=== PATIENT | female | born 1995 | race Caucasian/White ===

== ENCOUNTER 2019-10-21 21:20 | Emergency (ER) | payer OTHER, MEDICAID ==
[~2019-10-21] VITALS: Ht 162 cm; Wt 61.2 kg
[2019-10-21 21:42] LABS: BILIRUBIN,URINE NEGATIVE (NEGATIVE); CLARITY,URINE CLEAR; COLOR,URINE YELLOW; GLUCOSE, URINE (UA) NEGATIVE (NEGATIVE); KETONES,URINE NEGATIVE (NEGATIVE); LEUKOCYTE ESTERASE ,URINE NEGATIVE (NEGATIVE); NITRITE,URINE NEGATIVE (NEGATIVE); PROTEIN,URINE NEGATIVE (NEGATIVE)
[2019-10-21 21:56] LABS: BACTERIA,URINE TRACE /HPF; RBC,URINE RARE /HPF; SQUAMOUS EPITHELIAL CELL,UR 0-2 /HPF
[2019-10-21] MEDS ORDERED: KETOROLAC 30 MG/ML VIAL IVP STA (22:01)
[2019-10-21] MEDS ORDERED: LACTATED RINGERS 1,000 ML IV ONE (22:01)
--- NOTE | 2019-10-21 22:10 | ED Abdominal Pain ---
General Chief Complaint: Abdominal/GI Problems Stated Complaint: ABD PAIN,BACK PAIN,NAUSEA,HEADACHE Nursing Triage Note: PT PRESENTS TO ED WITH COMPLAINTS OF LLQ PAIN AND DELGADO X 3 DAYS. PT ALSO REPORTS NAUSEA AND BACK PAIN STARTED TODAY. Sepsis Screen: No Definite Risk Source of Information: Patient History of Present Illness Date Seen by Provider: Oct 21, 2019 Time Seen by Provider: 21:25 Initial Comments PT ARRIVES VIA POV FROM HOME STATES SHE HAS HAD LLQ PAIN FOR THE LAST 3 NIGHTS PAIN RADIATES TO LEFT FLANK--BEGAN TODAY WORSE WITH SITTING, LAYING DOWN, WALKING OR MOVING NOTHING IMPROVES PAIN C/O NAUSEA, NO VOMITING--BEGAN TODAY HAD NORMAL BM 1 HOUR AGO ALSO C/O HEADACHE TODAY NO FEVER NO URINARY SYMPTOMS, OTHER URINATING MORE THAN NORMAL STATES SHE HAS BEEN EATING AND DRINKING WELL, NO RELIEF WITH EXTRA STRENGTH TYLENOL X 1 LMP--HAS HAD MIRENA IUD IN PLACE SINCE APRIL--SPOTS OFF AND ON ALL THE TIME. LAST SPOTTED 2 DAYS AGO. NO RECENT ILLNESS, NO SICK CONTACTS OR KNOWN EXPOSURE TO COVID-19 PCP: IN [place], [place]--JUST MOVED HERE IN JUNE, AMID PANDEMIC STAY AT HOME ORDERS Allergies and Home Medications Allergies Coded Allergies: iodine (Verified Allergy, Intermediate, HIVES, 10/21/19) metoclopramide (Verified Allergy, Intermediate, 10/21/19) prochlorperazine (Verified Allergy, Intermediate, DYSTONIC, 10/21/19) promethazine (Verified Allergy, Intermediate, 10/21/19) Home Medications Cyclobenzaprine HCl 10 Mg Tablet, 10 MG PO Q8H PRN for SPASMS Prescribed by: MELINDA ISAAC on 10/21/192317 Naproxen 500 Mg Tablet.dr, 500 MG PO BID Prescribed by: MELINDA ISAAC on 10/21/192317 Patient Home Medication List Home Medication List Reviewed: Yes Review of Systems Review of Systems Constitutional: no symptoms reported; No chills, No diaphoresis, No fever EENTM: No Symptoms Reported Respiratory: No Symptoms Reported Cardiovascular: No Symptoms Reported Gastrointestinal: See HPI, Abdominal Pain; Denies Diarrhea, Denies Nausea, Denies Vomiting Genitourinary: See HPI; Denies Burning; Flank Pain, Other (INCREASED OUTPUT) Musculoskeletal: see HPI, back pain Skin: no symptoms reported Psychiatric/Neurological: No Symptoms Reported Endocrine: No Symptoms Reported Hematologic/Lymphatic: No Symptoms Reported Past Rwddlfi-[id number]-[id number] Hx Past Med/Social Hx: Reviewed and Corrections made Patient Social History Alcohol Use: Denies Use Recreational Drug Use: No Smoking Status: Never a Smoker Recent Foreign Travel: No Contact w/Someone Who Travel: No Recent Infectious Disease Expo: No Recent Hopitalizations: No Physical Abuse: No Sexual Abuse: No Mistreated: No Fear: No Past Medical History Surgeries: No Respiratory: No Cardiac: No Neurological: No Reproductive Disorders: No 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 oz. kg; 23.00 BMI Method: General Appearance: WD/WN, no apparent distress, other (WALKS UPRIGHT AND MOVES QUICKLY WITHOUT DIFFICULTY, LAYING ON LEFT SIDE. CONSTANTLY PLAYING/TEXTING ON PHONE. DOES NOT APPEAR TO BE IN ANY DISCOMFORT OR DISTRESSS. ) Respiratory: normal breath sounds, no respiratory distress, no accessory muscle use Cardiovascular: regular rate, rhythm, no murmur Gastrointestinal: normal bowel sounds, soft, no organomegaly, no pulsatile mass, tenderness (LLQ AND LEFT FLANK WITH MILD TENDERNESS) Extremities: normal inspection Back: CVA tenderness (L) Neurologic/Psychiatric: manager education II-XII nml as tested, no motor/sensory deficits, alert, normal mood/affect, oriented x 3 Skin: normal color, warm/dry; No rash Progress/Results/Core Measures Results/Orders Lab Results Laboratory Tests Test 10/21/19 21:35 10/21/19 22:02 Range/Units Urine Color YELLOW Urine Clarity CLEAR Urine pH 7.0 5-9 Urine Specific [place] 1.015 L 1.016-1.022 Urine Protein NEGATIVE NEGATIVE Urine Glucose (UA) NEGATIVE NEGATIVE Urine Ketones NEGATIVE NEGATIVE Urine Nitrite NEGATIVE NEGATIVE Urine Bilirubin NEGATIVE NEGATIVE Urine Urobilinogen 0.2 < = 1.0 MG/DL Urine Leukocyte Esterase NEGATIVE NEGATIVE Urine RBC (Auto) NEGATIVE NEGATIVE Urine RBC RARE /HPF Urine WBC NONE /HPF Urine Squamous Epithelial Cells 0-2 /HPF Urine Crystals NONE /LPF Urine Bacteria TRACE /HPF Urine Casts NONE /LPF Urine Mucus SMALL H /LPF Urine Culture Indicated NO White Blood Count 7.5 4.3-11.0 10^3/uL Red Blood Count 4.44 4.35-5.85 10^6/uL Hemoglobin 13.3 11.5-16.0 G/DL Hematocrit 40 35-52 % Mean Corpuscular Volume 89 80-99 FL Mean Corpuscular Hemoglobin 30 25-34 PG Mean Corpuscular Hemoglobin Concent 34 32-36 G/DL Red Cell Distribution Width 12.5 10.0-14.5 % Platelet Count 225 130-400 10^3/uL Mean Platelet Volume 9.7 7.4-10.4 FL Neutrophils (%) (Auto) 53 42-75 % Lymphocytes (%) (Auto) 34 12-44 % Monocytes (%) (Auto) 9 0-12 % Eosinophils (%) (Auto) 3 0-10 % Basophils (%) (Auto) 0 0-10 % Neutrophils # (Auto) 4.0 1.8-7.8 X 10^3 Lymphocytes # (Auto) 2.6 1.0-4.0 X 10^3 Monocytes # (Auto) 0.7 0.0-1.0 X 10^3 Eosinophils # (Auto) 0.3 0.0-0.3 10^3/uL Basophils # (Auto) 0.0 0.0-0.1 10^3/uL Sodium Level 139 135-145 MMOL/L Potassium Level 3.9 3.6-5.0 MMOL/L Chloride Level 107 98-107 MMOL/L Carbon Dioxide Level 22 21-32 MMOL/L Anion Gap 10 5-14 MMOL/L Blood Urea Nitrogen 15 7-18 MG/DL Creatinine 0.73 0.60-1.30 MG/DL Estimat Glomerular Filtration Rate > 60 BUN/Creatinine Ratio 21 Glucose Level 81 70-105 MG/DL Calcium Level 8.6 8.5-10.1 MG/DL Corrected Calcium 8.6 8.5-10.1 MG/DL Total Bilirubin 0.5 0.1-1.0 MG/DL Aspartate Amino Transf (AST/SGOT) 19 5-34 U/L Alanine Aminotransferase (ALT/SGPT) 16 0-55 U/L Alkaline Phosphatase 74 40-136 U/L Total Protein 6.5 6.4-8.2 GM/DL Albumin 4.0 3.2-4.5 GM/DL Amylase Level 68 25-125 U/L Lipase 40 8-78 U/L My Orders Orders - MELINDA ISAAC DO Urine Bedside (10/21/19 21:25) Ua Culture If Indicated (10/21/19 21:25) Ed Iv/Invasive Line Start (10/21/19 21:57) Amylase (10/21/19 21:57) Cbc With Automated Diff (10/21/19 21:57) Comprehensive Metabolic Panel (10/21/19 21:57) Lipase (10/21/19 21:57) Ed Iv/Invasive Line Start (10/21/19 21:57) Ct Abd/Pelvis Wo(Kidney Stone) (10/21/19 22:01) Abdomen, Flat & Upright/Decub (10/21/19 22:01) Ed Iv/Invasive Line Start (10/21/19 22:01) Lactated Ringers (Lr 1000 Ml Iv Solution (10/21/19 22:01) Ketorolac Injection (Toradol Injection) (10/21/19 22:01) Rx-Cyclobenzaprine Tablet (Rx-Flexeril T (10/21/19 23:18) Rx-Naproxen (Rx-Naprosyn) (10/21/19 23:18) Medications Given in ED Current Medications Medications Dose Ordered Sig/Anne-Marie Route Start Time Stop Time Status Last Admin Dose Admin Lactated Ringer's 1,000 ml @ 0 mls/hr Q0M ONCE IV 10/21/19 22:01 10/21/19 22:03 DC 10/21/19 22:34 0 MLS/HR Vital Signs/I&O 10/21/19 10/21/19 21:30 23:44 Temp 37.1 Pulse 80 69 Resp 16 20 B/P (MAP) 115/71 (86) 120/78 Pulse Ox 99 100 Blood Pressure Mean: 86 Progress Progress Note : Progress Note GIVEN TORADOL WITH RELIEF OF PAIN Diagnostic Imaging Comments ABDOMEN XRAYS--LARGE AMOUNT OF STOOL IN COLON, NO ACUTE PROCESS, PENDING RADIOLOGIST REVIEW CT ABDOMEN/PELVIS--NO ACUTE PROCESS, BILATERAL INTRARENAL NON-OBSTRUCTING STONES, MODERATE AMOUNT OF STOOL IN COLON, NO ACUTE PROCESS, PER [facility] VIA FAX AT [id number] Reviewed: Reviewed by Me Departure Impression Primary Impression: LLQ AND LEFT FLANK PAIN Disposition: HOME, SELF-CARE Condition: Improved Departure-Patient Inst. Referrals: NO,LOCAL PHYSICIAN (PCP/Family) Primary Care Physician Patient Instructions: Flank Pain (DC), Severe Abdominal Pain, Adult (DC) Add. Discharge Instructions: LOTS OF CLEAR LIQUIDS FOLLOW UP WITH YOUR DR IN 1-2 DAYS IF NO BETTER, RETURN TO ER IF WORSE All discharge instructions reviewed with patient and/or family. Voiced understanding. Scripts Naproxen (Naproxen) 500 Mg Tablet.dr 500 MG PO BID, #20 TAB Prov: MELINDA ISAAC DO 10/21/19 Cyclobenzaprine HCl (Cyclobenzaprine HCl) 10 Mg Tablet 10 MG PO Q8H PRN for SPASMS, #15 TAB 0 Refills Prov: MELINDA ISAAC DO 10/21/19 MELINDA ISAAC DO Oct 21, 2019 22:10
[2019-10-21 22:16] LABS: BASOPHILS % (AUTO) 0 % (0-10); EOSINOPHILS # (AUTO) 0.3 10^3/uL (0.0-0.3); EOSINOPHILS % (AUTO) 3 % (0-10); HEMATOCRIT 40 % (35-52); HEMOGLOBIN 13.3 G/DL (11.5-16.0); LYMPHOCYTES # (AUTO) 2.6 X 10^3 (1.0-4.0); LYMPHOCYTES % (AUTO) 34 % (12-44); MEAN CORPUSCULAR HEMOGLOBIN 30 PG (25-34); MEAN CORPUSCULAR HGB CONC 34 G/DL (32-36); MEAN CORPUSCULAR VOLUME 89 FL (80-99); MEAN PLATELET VOLUME 9.7 FL (7.4-10.4); MONOCYTES # (AUTO) 0.7 X 10^3 (0.0-1.0); MONOCYTES % (AUTO) 9 % (0-12); NEUTROPHILS % (AUTO) 53 % (42-75); PLATELET COUNT 225 10^3/uL (130-400); RED CELL DISTRIBUTION WIDTH 12.5 % (10.0-14.5); WHITE BLOOD COUNT 7.5 10^3/uL (4.3-11.0)
[2019-10-21 22:34] LABS: ALANINE AMINOTRANSFERASE 16 U/L (0-55); ALKALINE PHOSPHATASE 74 U/L (40-136); AMYLASE 68 U/L (25-125); BILIRUBIN,TOTAL 0.5 MG/DL (0.1-1.0); BUN/CREATININE RATIO 21; CALCIUM 8.6 MG/DL (8.5-10.1); CARBON DIOXIDE 22 MMOL/L (21-32); CHLORIDE 107 MMOL/L (98-107); CREATININE SERUM 0.73 MG/DL (0.60-1.30); GFR ESTIMATED > 60; GLUCOSE 81 MG/DL (70-105); LIPASE 40 U/L (8-78); POTASSIUM 3.9 MMOL/L (3.6-5.0); SODIUM 139 MMOL/L (135-145); TOTAL PROTEIN 6.5 GM/DL (6.4-8.2)
--- OUTSIDE RECORDS SUMMARY | 2019-10-21 22:52 | XMS REPORT ---
Author Author [facility] Organization [facility] Address Unknown Phone Unavailable Care Team Providers Care Supervisor Electron [employer] Name Role Phone Sondra Mckeon PCP Leticia Higgins PCP Dalila Parikh PCP Juju Potter PCP Delta Pate PCP Lovely Hanley PCP Manisha Blood PCP Manisha Blancas PCP Laxmi Perkins PCP Alondra Wei PCP Kat Henriquez PCP Kat Simon PCP Assessments SatAug 08 08:00:00 EDT 2019: see [facility] Concerns No Known Health Concerns Allergies No Known Allergy Information Encounters No Known Encounters Immunizations No Known Immunizations Lab Results No Known Laboratory Results Medical Equipment No Known Medical Equipment Medications Medication Directions Start Date End Date Lexapro 10MG TAB Take one (1) Tablet Each Morning SatDec 10 00:00:00 EDT 2014Dec 10 00:00:00 EDT 2014 Abilify 5MG TAB Take one (1) Tablet Twice a Day Oct 20 00:00:00 EDT 2014Oct 29 00:00:00 EDT 2014 Lexapro 10 MG TAB Take one (1) Tablet Each Morning SatFeb 03 00:00:00 EDT 2015Apr 03 00:00:00 EST 2015 Lamictal 100MG TAB Take one (1) Tablet At Bedtime SatDec 10 00:00:00 EDT 2014Dec 10 00:00:00 EDT 2014 LaMICtal 150MG TAB Take one (1) Tablet At Bedtime SatNov 25 00:00:00 EDT 2014Dec 10 00:00:00 EDT 2014 RisperDAL 0.25MG TAB Take one (1) Tablet At Bedtim e SatDec 10 00:00:00 EDT 2014Dec 10 00:00:00 EDT 2014 RisperDAL 0.25MG TAB Take one (1) Tablet At Bedtim e SatOct 29 00:00:00 EDT 2014Nov 25 00:00:00 EDT 2014 LaMICtal 100MG TAB Take one (1) Tablet At Bedtime SatOct 20 00:00:00 ED2014Nov 25 00:00:00 ED2014 LaMICtal 100MG TAB Take one (1) Tablet At Bedtime SatSep 21 00:00:00 EDT 2014Oct 20 00:00:00 EDT 2014 LaMICtal 25MG TAB 1 TAB PO QHS X 1 WEEK , TH EN 2 TAB PO QHS X 2 WEEKS AND ANDTHEN 3 TAB PO QHS SatAugust 24 00:00:00 EDT 2014Sep 21 00:00:00 EDT 2014 Wellbutrin XL 150 MG T24 Take one (1) tablet by mo uth every morning SatMar 19 00:00:00 EST 2017May 17 00:00:00 EST 2018 Amphetamine Salt Combo 10MG TAB Take one (1) Table t Each Morning SatNov 25 00:00:00 EDT 2014Apr 13 00:00:00 EST 2014 Adderall 10MG TAB Take one (1) Tablet Each Morning SatDec 10 00:00:00 EDT 2014Apr 13 00:00:00 EST 2015 Lexapro 10MG TAB Take one (1) Tablet At Bedtime Oct 29 00:00:00 EDT 2014Nov 25 00:00:00 EDT 2014 lamoTRIgine 200MG TER Take one (1) Tablet, E xtended Release At Bedtime SatMar 07 00:00:00 EST 2014Apr 13 00:00:00 EST 2 015 Lexapro 10MG TAB Take one (1) Tablet Each Morning SatDec 23 00:00:00 EDT 2014Apr 13 00:00:00 EST 2014 RisperDAL 0.25 MG TAB TAKE 1 TABLET BY MOUTH EVERY DAY AT BEDTIME SatMar 29 00:00:00 EST 2014Apr 13 00:00:00 EST 2014 Lexapro 10MG TAB Take one (1) Tablet At Bedtime Oct 20 00:00:00 EDT 2014Oct 29 00:00:00 EDT 2014 RisperDAL 1 MG TAB take 1/2 tab at bedtime f or 3 nights then increase to 1 full tab as tolerated SatMar 19 00:00:00 EST 2017May 17 00:00:00 EST 2018 RisperDAL 0.25MG TAB Take one (1) Tablet At Bedtim e SatDec 23 00:00:00 EDT 2014Feb 20 00:00:00 EDT 2014 lamoTRIgine 200MG TER Take one (1) Tablet, E xtended Release At Bedtime SatDec 23 00:00:00 EDT 2014Feb 20 00:00:00 EDT 015 LaMICtal 150MG TAB Take one (1) Tablet At Bedtime SatNov 08 00:00:00 EDT 2014Nov 25 00:00:00 EDT 2014 Lexapro 10MG TAB Take one and one half (1.5) Table ts At Bedtime SatAugust 24 00:00:00 EDT 2014Sep 22 00:00:00 EDT 2014 Lexapro 10MG TAB Take one (1) Tablet At Bedtime We Oct 20 00:00:00 EDT 2014Oct 20 00:00:00 EDT 2014 RisperDAL 0.25MG TAB Take one (1) Tablet At Bedtim e SatNov 25 00:00:00 EDT 2014Dec 10 00:00:00 EDT 2014 Lexapro 10MG TAB Take one (1) Tablet Each Morning SatNov 25 00:00:00 EDT 2014Dec 10 00:00:00 EDT 2014 Abilify 5MG TAB Take one (1) Tablet Twice a Day-DC MED [facility] 6-30-15 SatOct 20 00:00:00 EDT 2014Oct 20 00:00:00 EDT 2 015 Treatment Plan Interventions WAIVER SERVICE BUNDLE - Provid e the following services 1-3 times each week: + H2021 Wraparound Facilitation + S5110 Parent Support Individual + T2038 Independent Living CM will teach client how to co mplete her taxes.ATT CRISIS SERVICE BUNDLE + H2011 Crisis Intervention Attd Care + [id number] Crisis Intervention BA level + [id number] Crisis Intervention QMHP ADULT CASE MANAGEMENT SERVICE BUNDLE - Provide the following services 1-3 times each week: + 14145 Case Conf w/Clt nn-Physician + 52623 Case Conf w/o clt + family w/MD + 87728 Case Conf no Clt, no MD, w/QMHP + [id number] CPST Adult + [id number] Strength Based Case Mgmt + T1017 TCM - Targeted Case Management CM and client will research co mmunity for affordable places to live.DISC CM and client will learn skill s for money management and credit, such as budgeting, spending journal. CM and client will complete [place] S assessment WAIVER SERVICE BUNDLE - Provid e the following services 1-3 times each week: + H2021 Wraparound Facilitation + S5110 Parent Support Individual VOCATIONAL SERVICES BUNDLE - P rovide the following services 1-3 times each week: + [id number] CPST Supported Employment + [id number] CPST Adult + H2017 Psychosocial Rehab Individual + T1017 TCM - Targeted Case Management CRISIS SERVICE BUNDLE + H2011 Crisis Intervention Attd Care + [id number] Crisis Intervention BA level + [id number] Crisis Intervention QMHP ADULT CASE MANAGEMENT SERVICE BUNDLE - Provide the following services 1-3 times each week: + 76095 Case Conf w/Clt nn-Physician + 86772 Case Conf w/o clt + family w/MD + 82087 Case Conf no Clt, no MD, w/QMHP + [id number] CPST Adult + [id number] Strength Based Case Mgmt + T1017 TCM - Targeted Case Management Client Reporting Associate and CM will continue to encourage client to complete homework and study, keep her motivated and interested in school so she will graduate. Client Reporting Associate will a ssist client in admission to [facility], complete any paperwork, assist with class schedule, introduce to ACCESS services and meet with client to manage stressors at school WAIVER SERVICE BUNDLE - Provid e the following services 1-3 times each week: + H2021 Wraparound Facilitation + S5110 Parent Support Individual CRISIS SERVICE BUNDLE + H2011 Crisis Intervention Attd Care + [id number] Crisis Intervention BA level + [id number] Crisis Intervention QMHP ADULT THERAPY SERVICE BUNDLE - Provide the following services 1-3 times each week: + 56656 Psychotherapy, 16-37 Minutes + 22205 Psychotherapy, 38-52 Minutes + 02392 Psychotherapy, 53+ Minutes + 37380 Psychotherapy for Crisis 31-74 Minutes + 07948 Each Add'l 30 Min Crisis Psychotherapy + 96021 Case Conf w/Clt NN-Physician + 88608 Case Conf w/o Clt + Fam w/MD + 15905 Case Conf w/o Clt w/MD + T1017 TCM - Targeted Case Management ADULT CASE MANAGEMENT SERVICE BUNDLE - Provide the following services 1-3 times each week: + 36546 Case Conf w/Clt nn-Physician + 66485 Case Conf w/o clt + family w/MD + 57721 Case Conf no Clt, no MD, w/QMHP + [id number] CPST Adult + [id number] Strength Based Case Mgmt + T1017 TCM - Targeted Case Management CM will assist client in inden tifying ways she can incorporate self care to manage her angerDISC Providers will assist client i n developing a MINI WRAP and safety plan to utilize if her anger escalates. Therapist will assist client i n identifying triggers and ways to manage those triggers safely. CM will teach client demarcus white to balance work, school, baby and family without having sense of overwhelm. CM will teach client skills to manage her anger such as deep breathing, mindfulness . Initial Psychiatric Evaluation , Ongoing medication monitoring and management, Case Conference with multidisciplinary members of the [facility] team as indicated, and/or Collaboration and coordination with outside medical providers as indicated by providing the following services: 45356 interactive complexity 05535 psychiatric diagnostic eval w/ meds 09838 30 min psychotherapy add-on 57756 45 [place] [address] 60 min psychotherapy add-on 26677 med injection 32666 New Patient E&M (level 1) 22300 New Patient E&M (level 2) 06908 New Patient E&M (level 3) 19776 New patient E&M (level 4) 98375 New Patient E&M (level 5) 89952 Established Patient E&M (level 1) 04358 Established Patient E&M (level 2) 79594 Established Patient E&M (level 3) 06029 Established Patient E&M (level 4) 17353 Established Patient E&M (level 5) 9935x prolonged service code 84235 case conference w/o clt & fam w/ [place] 28713 case conference w/o clt w/ MD H0038 Peer Support Sarina ADULT CASE MANAGEMENT SERVICE BUNDLE - Provide the following services: + 67899 Case Conf w/Clt nn-Physician + [id number] CPST Adult + [id number] Strength Based Case Mgmt + T1017 TCM - Targeted Case Management WAIVER SERVICE BUNDLE - Provid e the following services: + H2021 Wraparound Facilitation + S5150 Respite Care Individual + [id number] MH Attendant Care Waiver CRISIS SERVICE BUNDLE + H2011 Crisis Intervention Attd Care + [id number] Crisis Intervention BA level + [id number] Crisis Intervention QMHP Action steps: 1) Client will utilize grounding skills 2. Take baby to calm her down 3.sleep 4. talk with older sister 5. Get away from dad (trigger) 6. call after hours/crisis 7. go to hospital or call police if needed Providers will assist client i n completing steps to attend [facility]. CM will teach client skills t o control impulsive spending. CM will encourage client to c omplete homework and turn in assignments for her online classes. WAIVER SERVICE BUNDLE - Provid e the following services 1-3 times each week: + H2021 Wraparound Facilitation + S5110 Parent Support Individual + T2038 Independent Living CRISIS SERVICE BUNDLE + H2011 Crisis Intervention Attd Care + [id number] Crisis Intervention BA level + [id number] Crisis Intervention QMHP ADULT CASE MANAGEMENT SERVICE BUNDLE - Provide the following services 1-3 times each week: + 83199 Case Conf w/Clt nn-Physician + 32664 Case Conf w/o clt + family w/MD + 03456 Case Conf no Clt, no MD, w/QMHP + [id number] CPST Adult + [id number] Strength Based Case Mgmt + T1017 TCM - Targeted Case Management CM and client will learn skill s for money management and credit, such as budgeting, spending journal. CM and client will complete [place] S assessment WAIVER SERVICE BUNDLE - Provid e the following services 1-3 times each week: + H2021 Wraparound Facilitation + S5110 Parent Support Individual VOCATIONAL SERVICES BUNDLE - P rovide the following services 1-3 times each week: + [id number] CPST Supported Employment + [id number] CPST Adult + H2017 Psychosocial Rehab Individual + T1017 TCM - Targeted Case Management CRISIS SERVICE BUNDLE + H2011 Crisis Intervention Attd Care + [id number] Crisis Intervention BA level + [id number] Crisis Intervention QMHP ADULT CASE MANAGEMENT SERVICE BUNDLE - Provide the following services 1-3 times each week: + 43895 Case Conf w/Clt nn-Physician + 95217 Case Conf w/o clt + family w/MD + 31448 Case Conf no Clt, no MD, w/QMHP + [id number] CPST Adult + [id number] Strength Based Case Mgmt + T1017 TCM - Targeted Case Management Client Reporting Associate and CM will continue to encourage client to complete homework and study, keep her motivated and interested in school so she will graduate. Client Reporting Associate will a ssist client in admission to [facility], complete any paperwork, assist with class schedule, introduce to ACCESS services and meet with client to manage stressors at school WAIVER SERVICE BUNDLE - Provid e the following services 1-3 times each week: + H2021 Wraparound Facilitation + S5110 Parent Support Individual CRISIS SERVICE BUNDLE + H2011 Crisis Intervention Attd Care + [id number] Crisis Intervention BA level + [id number] Crisis Intervention QMHP ADULT THERAPY SERVICE BUNDLE - Provide the following services 1-3 times each week: + 75266 Psychotherapy, 16-37 Minutes + 78984 Psychotherapy, 38-52 Minutes + 88226 Psychotherapy, 53+ Minutes + 29261 Psychotherapy for Crisis 31-74 Minutes + 60235 Each Add'l 30 Min Crisis Psychotherapy + 31038 Case Conf w/Clt NN-Physician + 16753 Case Conf w/o Clt + Fam w/MD + 65304 Case Conf w/o Clt w/MD + T1017 TCM - Targeted Case Management ADULT CASE MANAGEMENT SERVICE BUNDLE - Provide the following services 1-3 times each week: + 88664 Case Conf w/Clt nn-Physician + 50945 Case Conf w/o clt + family w/MD + 88303 Case Conf no Clt, no MD, w/QMHP + [id number] CPST Adult + [id number] Strength Based Case Mgmt + T1017 TCM - Targeted Case Management Providers will assist client i n developing a MINI WRAP and safety plan to utilize if her anger escalates. Therapist will assist client i n identifying triggers and ways to manage those triggers safely. CM will teach client demarcus white to balance work, school, baby and family without having sense of overwhelm. CM will teach client skills to manage her anger such as deep breathing, mindfulness .ATT Initial Psychiatric Evaluation , Ongoing medication monitoring and management, Case Conference with multidisciplinary members of the [facility] team as indicated, and/or Collaboration and coordination with outside medical providers as indicated by providing the following services: 48103 interactive complexity 37513 psychiatric diagnostic eval w/ meds 24170 30 min psychotherapy add-on 83986 45 [place] [address] 60 min psychotherapy add-on 23616 med injection 86303 New Patient E&M (level 1) 17385 New Patient E&M (level 2) 84267 New Patient E&M (level 3) 42301 New patient E&M (level 4) 39634 New Patient E&M (level 5) 37071 Established Patient E&M (level 1) 32343 Established Patient E&M (level 2) 56208 Established Patient E&M (level 3) 13086 Established Patient E&M (level 4) 05355 Established Patient E&M (level 5) 9935x prolonged service code 39670 case conference w/o clt & [place]/ [place] [address] case conference w/o clt w/ MD H0038 Peer Support Sarina ADULT CASE MANAGEMENT SERVICE BUNDLE - Provide the following services: + 13054 Case Conf w/Clt nn-Physician + [id number] CPST Adult + [id number] Strength Based Case Mgmt + T1017 TCM - Targeted Case Management WAIVER SERVICE BUNDLE - Provid e the following services: + H2021 Wraparound Facilitation + S5150 Respite Care Individual + [id number] MH Attendant Care Waiver CRISIS SERVICE BUNDLE + H2011 Crisis Intervention Attd Care + [id number] Crisis Intervention BA level + [id number] Crisis Intervention QMHP Action steps: 1) Client will utilize grounding skills 2. Take baby to calm her down 3.sleep 4. talk with older sister 5. Get away from dad (trigger) 6. call after hours/crisis 7. go to hospital or call police if needed WAIVER SERVICE BUNDLE - Provid e the following services 1-3 times each week: + H2021 Wraparound Facilitation + S5110 Parent Support Individual + T2038 Independent Living CM will make referral to Vocat ional Team to gain assistance and knowledge from Client Reporting Associate. WAIVER SERVICE BUNDLE - Provid e the following services 1-3 times each week: + H2021 Wraparound Facilitation + S5110 Parent Support Individual + S5150 Respite Care Individual + S9485 Professional Resource Family Care + [id number] Attendant Care Waiver + T2038 Independent Living CM will teach client skills t o control impulsive spending. WAIVER SERVICE BUNDLE - Provid e the following services 1-3 times each week: + H2021 Wraparound Facilitation + S5110 Parent Support Individual + T2038 Independent Living CRISIS SERVICE BUNDLE + H2011 Crisis Intervention Attd Care + [id number] Crisis Intervention BA level + [id number] Crisis Intervention QMHP ADULT CASE MANAGEMENT SERVICE BUNDLE - Provide the following services 1-3 times each week: + 67930 Case Conf w/Clt nn-Physician + 27442 Case Conf w/o clt + family w/MD + 87461 Case Conf no Clt, no MD, w/QMHP + [id number] CPST Adult + [id number] Strength Based Case Mgmt + T1017 TCM - Targeted Case Management CM and client will learn skill s for money management and credit, such as budgeting, spending journal. CM and client will complete [place] S assessment Providers will assist client i n completing steps to attend [facility]. CM will encourage client to c omplete homework and turn in assignments for her online classes. VOCATIONAL SERVICES BUNDLE - P rovide the following services 1-3 times each week: + [id number] CPST Supported Employment + [id number] CPST Adult + H2017 Psychosocial Rehab Individual + T1017 TCM - Targeted Case Management CRISIS SERVICE BUNDLE + H2011 Crisis Intervention Attd Care + [id number] Crisis Intervention BA level + [id number] Crisis Intervention QMHP ADULT CASE MANAGEMENT SERVICE BUNDLE - Provide the following services 1-3 times each week: + 70104 Case Conf w/Clt nn-Physician + 22583 Case Conf w/o clt + family w/MD + 90355 Case Conf no Clt, no MD, w/QMHP + [id number] CPST Adult + [id number] Strength Based Case Mgmt + T1017 TCM - Targeted Case Management Client Reporting Associate and CM will continue to encourage client to complete homework and study, keep her motivated and interested in school so she will graduate. Client Reporting Associate will a ssist client in admission to [facility], complete any paperwork, assist with class schedule, introduce to ACCESS services and meet with client to manage stressors at school CRISIS SERVICE BUNDLE + H2011 Crisis Intervention Attd Care + [id number] Crisis Intervention BA level + [id number] Crisis Intervention QMHP ADULT THERAPY SERVICE BUNDLE - Provide the following services 1-3 times each week: + 62368 Psychotherapy, 16-37 Minutes + 50607 Psychotherapy, 38-52 Minutes + 28192 Psychotherapy, 53+ Minutes + 96133 Psychotherapy for Crisis 31-74 Minutes + 69932 Each Add'l 30 Min Crisis Psychotherapy + 27319 Case Conf w/Clt NN-Physician + 03249 Case Conf w/o Clt + Fam w/MD + 67279 Case Conf w/o Clt w/MD + T1017 TCM - Targeted Case Management ADULT CASE MANAGEMENT SERVICE BUNDLE - Provide the following services 1-3 times each week: + 88836 Case Conf w/Clt nn-Physician + 65913 Case Conf w/o clt + family w/MD + 21334 Case Conf no Clt, no MD, w/QMHP + [id number] CPST Adult + [id number] Strength Based Case Mgmt + T1017 TCM - Targeted Case Management Providers will teach client ST OPP skill, Anger Iceberg, Anger as a Secondary Emotion through handouts, phone apps and other resources available in the community. Providers will assist client i n identifying triggers and ways to manage those triggers safely. CM will teach client time zachary gement/structure to balance work, school, baby and family without having sense of overwhelm. CM will teach client skills to manage her anger such as deep breathing, mindfulness .ATT Initial Psychiatric Evaluation , Ongoing medication monitoring and management, Case Conference with multidisciplinary members of the [facility] team as indicated, and/or Collaboration and coordination with outside medical providers as indicated by providing the following services: 32833 interactive complexity 17175 psychiatric diagnostic eval w/ meds 07327 30 min psychotherapy add-on 76538 45 [place] [address] 60 min psychotherapy add-on 65617 med injection 06849 New Patient E&M (level 1) 92052 New Patient E&M (level 2) 39081 New Patient E&M (level 3) 26705 New patient E&M (level 4) 47334 New Patient E&M (level 5) 50946 Established Patient E&M (level 1) 24464 Established Patient E&M (level 2) 65543 Established Patient E&M (level 3) 27854 Established Patient E&M (level 4) 81508 Established Patient E&M (level 5) 9935x prolonged service code 09858 case conference w/o clt [place]/ [place] [address] case conference w/o clt w/ MD H0038 Peer Support Sarina ADULT CASE MANAGEMENT SERVICE BUNDLE - Provide the following services: + 97984 Case Conf w/Clt nn-Physician + [id number] CPST Adult + [id number] Strength Based Case Mgmt + T1017 TCM - Targeted Case Management WAIVER SERVICE BUNDLE - Provid e the following services: + H2021 Wraparound Facilitation + S5150 Respite Care Individual + [id number] MH Attendant Care Waiver CRISIS SERVICE BUNDLE + H2011 Crisis Intervention Attd Care + [id number] Crisis Intervention BA level + [id number] Crisis Intervention QMHP Action steps: 1) Client will utilize grounding skills 2. Take baby to calm her down 3.sleep 4. talk with older sister 5. Get away from dad (trigger) 6. call after hours/crisis 7. go to hospital or call police if needed Client will utilize learned sk ills such as deep breathing and mindfulness. CM will assist client in findi ng strategies to remember to take medications including phone reminders, bubble packaging. CM will teach client skills t o control impulsive spending.ATT WAIVER SERVICE BUNDLE - Provid e the following services 1-3 times each week: + H2021 Wraparound Facilitation + S5110 Parent Support Individual + T2038 Independent Living CRISIS SERVICE BUNDLE + H2011 Crisis Intervention Attd Care + [id number] Crisis Intervention BA level + [id number] Crisis Intervention QMHP ADULT CASE MANAGEMENT SERVICE BUNDLE - Provide the following services 1-3 times each week: + 16938 Case Conf w/Clt nn-Physician + 45098 Case Conf w/o clt + family w/MD + 59720 Case Conf no Clt, no MD, w/QMHP + [id number] CPST Adult + [id number] Strength Based Case Mgmt + T1017 TCM - Targeted Case Management CM and client will learn skill s for money management and credit, such as budgeting, spending journal. CM and client will complete [place] S assessment DISC WAIVER SERVICE BUNDLE - Provid e the following services 1-3 times each week: + H2021 Wraparound Facilitation + S5110 Parent Support Individual + T2038 Independent Living CM will make referral to Vocat ional Team to gain assistance and knowledge from Client Reporting Associate. Providers will assist client i n completing steps to attend [facility]. CM will encourage client to c omplete homework and turn in assignments for her online classes. VOCATIONAL SERVICES BUNDLE - P rovide the following services 1-3 times each week: + [id number] CPST Supported Employment + [id number] CPST Adult + H2017 Psychosocial Rehab Individual + T1017 TCM - Targeted Case Management CRISIS SERVICE BUNDLE + H2011 Crisis Intervention Attd Care + [id number] Crisis Intervention BA level + [id number] Crisis Intervention [facility] ADULT CASE MANAGEMENT SERVICE BUNDLE - Provide the following services 1-3 times each week: + 23390 Case Conf w/Clt nn-Physician + 02865 Case Conf w/o clt + family w/MD + 98412 Case Conf no Clt, no MD, w/QMHP + [id number] CPST Adult + [id number] Strength Based Case Mgmt + T1017 TCM - Targeted Case Management Client Reporting Associate and CM will continue to encourage client to complete homework and study, keep her motivated and interested in school so she will graduate. Client Reporting Associate will a ssist client in admission to [facility], complete any paperwork, assist with class schedule, introduce to ACCESS services and meet with client to manage stressors at school ATT WAIVER SERVICE BUNDLE - Provid e the following services 1-3 times each week: + H2021 Wraparound Facilitation + S5110 Parent Support Individual + S5150 Respite Care Individual + S9485 Professional Resource Family Care + [id number] MH Attendant Care Waiver + T2038 Independent Living CRISIS SERVICE BUNDLE + H2011 Crisis Intervention Attd Care + [id number] Crisis Intervention BA level + [id number] Crisis Intervention QM ADULT CASE MANAGEMENT SERVICE BUNDLE - Provide the following services 1-3 times each week: + 46523 Case Conf w/Clt nn-Physician + 61722 Case Conf w/o clt + family w/MD + 78771 Case Conf no Clt, no MD, w/QMHP + [id number] CPST Adult + [id number] Strength Based Case Mgmt + T1017 TCM - Targeted Case Management Providers will teach client ST OPP skill, Anger Iceberg, Anger as a Secondary Emotion through handouts, phone apps and other resources available in the community. Providers will assist client i n identifying triggers and ways to manage those triggers safely. CM will teach client time zachary gement/structure to balance work, school, baby and family without having sense of overwhelm. CM will teach client skills to manage her anger such as deep breathing, mindfulness .ATT Initial Psychiatric Evaluation , Ongoing medication monitoring and management, Case Conference with multidisciplinary members of the [facility] team as indicated, and/or Collaboration and coordination with outside medical providers as indicated by providing the following services: 89313 interactive complexity 57566 psychiatric diagnostic eval w/ meds 99446 30 min psychotherapy add-on 98830 45 [place] [address] 60 min psychotherapy add-on 36815 med injection 79414 New Patient E&M (level 1) 58909 New Patient E&M (level 2) 79582 New Patient E&M (level 3) 00545 New patient E&M (level 4) 59591 New Patient E&M (level 5) 34914 Established Patient E&M (level 1) 00019 Established Patient E&M (level 2) 55742 Established Patient E&M (level 3) 08354 Established Patient E&M (level 4) 40580 Established Patient E&M (level 5) 9935x prolonged service code 24249 case conference w/o clt & fam w/ 15598 case conference w/o clt w/ H0038 Peer Support Sarina ADULT CASE MANAGEMENT SERVICE BUNDLE - Provide the following services: + 22910 Case Conf w/Clt nn-Physician + [id number] CPST Adult + [id number] Strength Based Case Mgmt + T1017 TCM - Targeted Case Management WAIVER SERVICE BUNDLE - Provid e the following services: + H2021 Wraparound Facilitation + S5150 Respite Care Individual + [id number] MH Attendant Care Waiver CRISIS SERVICE BUNDLE + H2011 Crisis Intervention Attd Care + [id number] Crisis Intervention BA level + [id number] Crisis Intervention QMHP Action steps: 1) Client will utilize grounding skills 2. Take baby to calm her down 3.sleep 4. talk with older sister 5. Get away from dad (trigger) 6. call after hours/crisis 7. go to hospital or call police if needed WAIVER SERVICE BUNDLE - Provid e the following services 1-3 times each week: + H2021 Wraparound Facilitation + S5110 Parent Support Individual + T2038 Independent Living CRISIS SERVICE BUNDLE + H2011 Crisis Intervention Attd Care + [id number] Crisis Intervention BA level + [id number] Crisis Intervention QMHP ADULT CASE MANAGEMENT SERVICE BUNDLE - Provide the following services 1-3 times each week: + 67822 Case Conf w/Clt nn-Physician + 05923 Case Conf w/o clt + family w/MD + 98240 Case Conf no Clt, no MD, w/QMHP + [id number] CPST Adult + [id number] Strength Based Case Mgmt + T1017 TCM - Targeted Case Management CM and client will learn skill s for money management and credit, such as budgeting, spending journal. WAIVER SERVICE BUNDLE - Provid e the following services 1-3 times each week: + H2021 Wraparound Facilitation + S5110 Parent Support Individual + T2038 Independent Living CM will make referral to Vocat ional Team to gain assistance and knowledge from Client Reporting Associate. Providers will assist client i n completing steps to attend [facility]. CM will encourage client to c omplete homework and turn in assignments for her online classes. VOCATIONAL SERVICES BUNDLE - P rovide the following services 1-3 times each week: + [id number] CPST Supported Employment + [id number] CPST Adult + H2017 Psychosocial Rehab Individual + T1017 TCM - Targeted Case Management CRISIS SERVICE BUNDLE + H2011 Crisis Intervention Attd Care + [id number] Crisis Intervention BA level + [id number] Crisis Intervention QMHP ADULT CASE MANAGEMENT SERVICE BUNDLE - Provide the following services 1-3 times each week: + 79392 Case Conf w/Clt nn-Physician + 74257 Case Conf w/o clt + family w/MD + 65707 Case Conf no Clt, no MD, w/QMHP + [id number] CPST Adult + [id number] Strength Based Case Mgmt + T1017 TCM - Targeted Case Management Client Reporting Associate and CM will continue to encourage client to complete homework and study, keep her motivated and interested in school so she will graduate. Client will utilize learned sk ills such as deep breathing and mindfulness. CM will assist client in findi ng strategies to remember to take medications including phone reminders, bubble packaging. WAIVER SERVICE BUNDLE - Provid e the following services 1-3 times each week: + H2021 Wraparound Facilitation + S5110 Parent Support Individual + S5150 Respite Care Individual + S9485 Professional Resource Family Care + [id number] MH Attendant Care Waiver + T2038 Independent Living CRISIS SERVICE BUNDLE + H2011 Crisis Intervention Attd Care + [id number] Crisis Intervention BA level + [id number] Crisis Intervention QMHP ADULT CASE MANAGEMENT SERVICE BUNDLE - Provide the following services 1-3 times each week: + 89473 Case Conf w/Clt nn-Physician + 77680 Case Conf w/o clt + family w/MD + 01309 Case Conf no Clt, no MD, w/QMHP + [id number] CPST Adult + [id number] Strength Based Case Mgmt + T1017 TCM - Targeted Case Management Providers will teach client ST OPP skill, Anger Iceberg, Anger as a Secondary Emotion through handouts, phone apps and other resources available in the community. Providers will assist client i n identifying triggers and ways to manage those triggers safely. CM will teach client time zachary gement/structure to balance work, school, baby and family without having sense of overwhelm. CM will teach client skills to manage her anger such as deep breathing, mindfulness .ATT Initial Psychiatric Evaluation , Ongoing medication monitoring and management, Case Conference with multidisciplinary members of the [facility] team as indicated, and/or Collaboration and coordination with outside medical providers as indicated by providing the following services: 11058 interactive complexity 09942 psychiatric diagnostic eval w/ meds 80497 30 min psychotherapy add-on 73673 45 [place] [address] 60 min psychotherapy add-on 98294 med injection 16061 New Patient E&M (level 1) 08178 New Patient E&M (level 2) 31017 New Patient E&M (level 3) 98405 New patient E&M (level 4) 75758 New Patient E&M (level 5) 32542 Established Patient E&M (level 1) 76929 Established Patient E&M (level 2) 44245 Established Patient E&M (level 3) 52132 Established Patient E&M (level 4) 90234 Established Patient E&M (level 5) 9935x prolonged service code 19403 case conference w/o clt & fam w/ MD 03123 case conference w/o clt w/ MD H0038 Peer Support Sarina ADULT CASE MANAGEMENT SERVICE BUNDLE - Provide the following services: + 91277 Case Conf w/Clt nn-Physician + [id number] CPST Adult + [id number] Strength Based Case Mgmt + T1017 TCM - Targeted Case Management WAIVER SERVICE BUNDLE - Provid e the following services: + H2021 Wraparound Facilitation + S5150 Respite Care Individual + [id number] MH Attendant Care Waiver CRISIS SERVICE BUNDLE + H2011 Crisis Intervention Attd Care + [id number] Crisis Intervention BA level + [id number] Crisis Intervention QMHP Action steps: 1) Client will utilize grounding skills 2. Take baby to calm her down 3.sleep 4. talk with older sister 5. Get away from dad (trigger) 6. call after hours/crisis 7. go to hospital or call police if needed WAIVER SERVICE BUNDLE - Provid e the following services 1-3 times each week: + H2021 Wraparound Facilitation + S5110 Parent Support Individual + S5150 Respite Care Individual + S9485 Professional Resource Family Care + [id number] MH Attendant Care Waiver + T2038 Independent Living CRISIS SERVICE BUNDLE + H2011 Crisis Intervention Attd Care + [id number] Crisis Intervention BA level + [id number] Crisis Intervention QMHP ADULT CASE MANAGEMENT SERVICE BUNDLE - Provide the following services 1-3 times each week: + 87993 Psychological Testing + 15988 Case Conf w/Clt nn-Physician + 47080 Case Conf w/o clt + family w/MD + 65267 Case Conf no Clt, no MD, w/QMHP + [id number] CPST Adult + [id number] Strength Based Case Mgmt + T1017 TCM - Targeted Case Management CM and client will find ways t o be successful in taking medications consistently. CM will teach cliient abot charan fullness vs willingness. ClM and client will see psycha iatrist at [facility] for medicartion adjustment. Client will meet with case man ager weekly. WAIVER SERVICE BUNDLE - Provid e the following services 1-3 times each week: + H2021 Wraparound Facilitation + S5110 Parent Support Individual + T2038 Independent Living DISC CRISIS SERVICE BUNDLE + H2011 Crisis Intervention Attd Care + [id number] Crisis Intervention BA level + [id number] Crisis Intervention QMHP DISC ADULT CASE MANAGEMENT SERVICE BUNDLE - Provide the following services 1-3 times each week: + 51236 Case Conf w/Clt nn-Physician + 63388 Case Conf w/o clt + family w/MD + 70236 Case Conf no Clt, no MD, w/QMHP + [id number] CPST Adult + [id number] Strength Based Case Mgmt + T1017 TCM - Targeted Case Management DISC CM and client will learn skill s for money management and credit, such as budgeting, spending journal.DISC WAIVER SERVICE BUNDLE - Provid e the following services 1-3 times each week: + H2021 Wraparound Facilitation + S5110 Parent Support Individual + T2038 Independent Living CM will make referral to Vocat ional Team to gain assistance and knowledge from Client Reporting Associate.ATT Providers will assist client i n completing steps to attend [facility]. CM will encourage client to c omplete homework and turn in assignments for her online classes. VOCATIONAL SERVICES BUNDLE - P rovide the following services 1-3 times each week: + [id number] CPST Supported Employment + [id number] CPST Adult + H2017 Psychosocial Rehab Individual + T1017 TCM - Targeted Case Management CRISIS SERVICE BUNDLE + H2011 Crisis Intervention Attd Care + [id number] Crisis Intervention BA level + [id number] Crisis Intervention QMHP ADULT CASE MANAGEMENT SERVICE BUNDLE - Provide the following services 1-3 times each week: + 31965 Case Conf w/Clt nn-Physician + 48773 Case Conf w/o clt + family w/MD + 53992 Case Conf no Clt, no MD, w/QMHP + [id number] CPST Adult + [id number] Strength Based Case Mgmt + T1017 TCM - Targeted Case Management Client Reporting Associate and CM will continue to encourage client to complete homework and study, keep her motivated and interested in school so she will graduate. Client will utilize learned sk ills such as deep breathing and mindfulness. CM will assist client in findi ng strategies to remember to take medications including phone reminders, bubble packaging. DISC WAIVER SERVICE BUNDLE - Provid e the following services 1-3 times each week: + H2021 Wraparound Facilitation + S5110 Parent Support Individual + S5150 Respite Care Individual + S9485 Professional Resource Family Care + [id number] MH Attendant Care Waiver + T2038 Independent Living CRISIS SERVICE BUNDLE + H2011 Crisis Intervention Attd Care + [id number] Crisis Intervention BA level + [id number] Crisis Intervention QMHP ADULT CASE MANAGEMENT SERVICE BUNDLE - Provide the following services 1-3 times each week: + 12234 Case Conf w/Clt nn-Physician + 17748 Case Conf w/o clt + family w/MD + 66308 Case Conf no Clt, no MD, w/QMHP + [id number] CPST Adult + [id number] Strength Based Case Mgmt + T1017 TCM - Targeted Case Management Providers will teach client ST OPP skill, Anger Iceberg, Anger as a Secondary Emotion through handouts, phone apps and other resources available in the community. Providers will assist client i n identifying triggers and ways to manage those triggers safely. CM will teach client time zachary gement/structure to balance work, school, baby and family without having sense of overwhelm. CM will teach client skills to manage her anger such as deep breathing, mindfulness .ATT Initial Psychiatric Evaluation , Ongoing medication monitoring and management, Case Conference with multidisciplinary members of the [facility] team as indicated, and/or Collaboration and coordination with outside medical providers as indicated by providing the following services: 32283 interactive complexity 94857 psychiatric diagnostic eval w/ meds 01973 30 min psychotherapy add-on 66348 45 [place] [address] 60 min psychotherapy add-on 36438 med injection 60621 New Patient E&M (level 1) 60814 New Patient E&M (level 2) 31010 New Patient E&M (level 3) 81500 New patient E&M (level 4) 34153 New Patient E&M (level 5) 85285 Established Patient E&M (level 1) 36503 Established Patient E&M (level 2) 90429 Established Patient E&M (level 3) 82061 Established Patient E&M (level 4) 12045 Established Patient E&M (level 5) 9935x prolonged service code 41963 case conference w/o clt & fam w/ 82686 case conference w/o clt w/ MD H0038 Peer Support Sarina ADULT CASE MANAGEMENT SERVICE BUNDLE - Provide the following services: + 38256 Case Conf w/Clt nn-Physician + [id number] CPST Adult + [id number] Strength Based Case Mgmt + T1017 TCM - Targeted Case Management WAIVER SERVICE BUNDLE - Provid e the following services: + H2021 Wraparound Facilitation + S5150 Respite Care Individual + [id number] MH Attendant Care Waiver CRISIS SERVICE BUNDLE + H2011 Crisis Intervention Attd Care + [id number] Crisis Intervention BA level + [id number] Crisis Intervention QMHP Action steps: 1) Client will utilize grounding skills 2. Take baby to calm her down 3.sleep 4. talk with older sister 5. Get away from dad (trigger) 6. call after hours/crisis 7. go to hospital or call police if needed WAIVER SERVICE BUNDLE - Provid e the following services 1-3 times each week: + H2021 Wraparound Facilitation + S5110 Parent Support Individual + S5150 Respite Care Individual + S9485 Professional Resource Family Care + [id number] MH Attendant Care Waiver + T2038 Independent Living CRISIS SERVICE BUNDLE + H2011 Crisis Intervention Attd Care + [id number] Crisis Intervention BA level + [id number] Crisis Intervention QMHP ADULT CASE MANAGEMENT SERVICE BUNDLE - Provide the following services 1-3 times each week: + 65004 Psychological Testing + 36459 Case Conf w/Clt nn-Physician + 84011 Case Conf w/o clt + family w/MD + 52753 Case Conf no Clt, no MD, w/QMHP + [id number] CPST Adult + [id number] Strength Based Case Mgmt + T1017 TCM - Targeted Case Management CM and client will find ways t o be successful in taking medications consistently. CM will teach cliient abot charan fullness vs willingness. ClM and client will see psycha iatrist at [facility] for medicartion adjustment. Client will meet with case man ager weekly. WAIVER SERVICE BUNDLE - Provid e the following services 1-3 times each week: + H2021 Wraparound Facilitation + S5110 Parent Support Individual + T2038 Independent Living Providers will assist client i n completing steps to attend [facility]. CM will encourage client to c omplete homework and turn in assignments for her online classes. VOCATIONAL SERVICES BUNDLE - P rovide the following services 1-3 times each week: + [id number] CPST Supported Employment + [id number] CPST Adult + H2017 Psychosocial Rehab Individual + T1017 TCM - Targeted Case Management CRISIS SERVICE BUNDLE + H2011 Crisis Intervention Attd Care + [id number] Crisis Intervention BA level + [id number] Crisis Intervention QMHP ADULT CASE MANAGEMENT SERVICE BUNDLE - Provide the following services 1-3 times each week: + 21478 Case Conf w/Clt nn-Physician + 84272 Case Conf w/o clt + family w/MD + 85092 Case Conf no Clt, no MD, w/QMHP + [id number] CPST Adult + [id number] Strength Based Case Mgmt + T1017 TCM - Targeted Case Management Client Reporting Associate and CM will continue to encourage client to complete homework and study, keep her motivated and interested in school so she will graduate. Client will utilize learned sk ills such as deep breathing and mindfulness. WAIVER SERVICE BUNDLE - Provid e the following services 1-3 times each week: + H2021 Wraparound Facilitation + S5110 Parent Support Individual + S5150 Respite Care Individual + S9485 Professional Resource Family Care + [id number] Attendant Care Waiver + T2038 Independent Living CRISIS SERVICE BUNDLE + H2011 Crisis Intervention Attd Care + [id number] Crisis Intervention BA level + [id number] Crisis Intervention QMHP ADULT CASE MANAGEMENT SERVICE BUNDLE - Provide the following services 1-3 times each week: + 73290 Case Conf w/Clt nn-Physician + 53765 Case Conf w/o clt + family w/MD + 42326 Case Conf no Clt, no MD, w/QMHP + [id number] CPST Adult + [id number] Strength Based Case Mgmt + T1017 TCM - Targeted Case Management Providers will teach client ST OPP skill, Anger Iceberg, Anger as a Secondary Emotion through handouts, phone apps and other resources available in the community. Providers will assist client i n identifying triggers and ways to manage those triggers safely. CM will teach client time zachary christopher/structure to balance work, school, baby and family without having sense of overwhelm. CM will teach client skills to manage her anger such as deep breathing, mindfulness .ATT Initial Psychiatric Evaluation , Ongoing medication monitoring and management, Case Conference with multidisciplinary members of the [facility] team as indicated, and/or Collaboration and coordination with outside medical providers as indicated by providing the following services: 10399 interactive complexity 79061 psychiatric diagnostic eval w/ meds 49169 30 min psychotherapy add-on 42091 45 [place] [address] 60 min psychotherapy add-on 96328 med injection 01140 New Patient E&M (level 1) 37677 New Patient E&M (level 2) 85481 New Patient E&M (level 3) 69660 New patient E&M (level 4) 48972 New Patient E&M (level 5) 76653 Established Patient E&M (level 1) 84010 Established Patient E&M (level 2) 10029 Established Patient E&M (level 3) 81534 Established Patient E&M (level 4) 48811 Established Patient E&M (level 5) 9935x prolonged service code 31702 case conference w/o clt & fam w/ [place] 21705 case conference w/o clt w/ MD H0038 Peer Support Sarina ADULT CASE MANAGEMENT SERVICE BUNDLE - Provide the following services: + 37478 Case Conf w/Clt nn-Physician + [id number] CPST Adult + [id number] Strength Based Case Mgmt + T1017 TCM - Targeted Case Management WAIVER SERVICE BUNDLE - Provid e the following services: + H2021 Wraparound Facilitation + S5150 Respite Care Individual + [id number] Attendant Care Waiver CRISIS SERVICE BUNDLE + H2011 Crisis Intervention Attd Care + [id number] Crisis Intervention BA level + [id number] Crisis Intervention QMHP Action steps: 1) Client will utilize grounding skills 2. Take baby to calm her down 3.sleep 4. talk with older sister 5. Get away from dad (trigger) 6. call after hours/crisis 7. go to hospital or call police if needed Client will meet with vocation al counselor weekly to address concerns client has throughout the week. WAIVER SERVICE BUNDLE - Provid e the following services 1-3 times each week: + H2021 Wraparound Facilitation + S5110 Parent Support Individual + S5150 Respite Care Individual + S9485 Professional Resource Family Care + [id number] Attendant Care Waiver + T2038 Independent Living CRISIS SERVICE BUNDLE + H2011 Crisis Intervention Attd Care + [id number] Crisis Intervention BA level + [id number] Crisis Intervention QMHP ADULT CASE MANAGEMENT SERVICE BUNDLE - Provide the following services 1-3 times each week: + 83948 Psychological Testing + 17011 Case Conf w/Clt nn-Physician + 87870 Case Conf w/o clt + family w/MD + 33585 Case Conf no Clt, no MD, w/QMHP + [id number] CPST Adult + [id number] Strength Based Case Mgmt + T1017 TCM - Targeted Case Management CM and client will find ways t o be successful in taking medications consistently. CM will teach cliient abot charan fullness vs willingness. ClM and client will see psycha iatrist at [facility] for medicartion adjustment. Client will meet with case man ager weekly. WAIVER SERVICE BUNDLE - Provid e the following services 1-3 times each week: + H2021 Wraparound Facilitation + S5110 Parent Support Individual + T2038 Independent Living Providers will assist client i n completing steps to attend [facility]. CM will encourage client to c omplete homework and turn in assignments for her online classes. VOCATIONAL SERVICES BUNDLE - P rovide the following services 1-3 times each week: + [id number] CPST Supported Employment + [id number] CPST Adult + H2017 Psychosocial Rehab Individual + T1017 TCM - Targeted Case Management CRISIS SERVICE BUNDLE + H2011 Crisis Intervention Attd Care + [id number] Crisis Intervention BA level + [id number] Crisis Intervention QMHP ADULT CASE MANAGEMENT SERVICE BUNDLE - Provide the following services 1-3 times each week: + 46995 Case Conf w/Clt nn-Physician + 74001 Case Conf w/o clt + family w/MD + 43886 Case Conf no Clt, no MD, w/QMHP + [id number] CPST Adult + [id number] Strength Based Case Mgmt + T1017 TCM - Targeted Case Management Client Reporting Associate and CM will continue to encourage client to complete homework and study, keep her motivated and interested in school so she will graduate. Client will utilize learned sk ills such as deep breathing and mindfulness. WAIVER SERVICE BUNDLE - Provid e the following services 1-3 times each week: + H2021 Wraparound Facilitation + S5110 Parent Support Individual + S5150 Respite Care Individual + S9485 Professional Resource Family Care + [id number] MH Attendant Care Waiver + T2038 Independent Living CRISIS SERVICE BUNDLE + H2011 Crisis Intervention Attd Care + [id number] Crisis Intervention BA level + [id number] Crisis Intervention QMHP ADULT CASE MANAGEMENT SERVICE BUNDLE - Provide the following services 1-3 times each week: + 18369 Case Conf w/Clt nn-Physician + 86534 Case Conf w/o clt + family w/MD + 86457 Case Conf no Clt, no MD, w/QMHP + [id number] CPST Adult + [id number] Strength Based Case Mgmt + T1017 TCM - Targeted Case Management Providers will teach client ST OPP skill, Anger Iceberg, Anger as a Secondary Emotion through handouts, phone apps and other resources available in the community. Providers will assist client i n identifying triggers and ways to manage those triggers safely. CM will teach client time zachary gement/structure to balance work, school, baby and family without having sense of overwhelm. CM will teach client skills to manage her anger such as deep breathing, mindfulness .ATT Initial Psychiatric Evaluation , Ongoing medication monitoring and management, Case Conference with multidisciplinary members of the [facility] team as indicated, and/or Collaboration and coordination with outside medical providers as indicated by providing the following services: 56728 interactive complexity 13096 psychiatric diagnostic eval w/ meds 20808 30 min psychotherapy add-on 82136 45 [place] [address] 60 min psychotherapy add-on 61417 med injection 35048 New Patient E&M (level 1) 36382 New Patient E&M (level 2) 62023 New Patient E&M (level 3) 27270 New patient E&M (level 4) 30452 New Patient E&M (level 5) 72937 Established Patient E&M (level 1) 89627 Established Patient E&M (level 2) 45519 Established Patient E&M (level 3) 51727 Established Patient E&M (level 4) 09017 Established Patient E&M (level 5) 9935x prolonged service code 47314 case conference w/o clt & fam w/ 53137 case conference w/o clt w/ MD H0038 Peer Support Sarina ADULT CASE MANAGEMENT SERVICE BUNDLE - Provide the following services: + 29808 Case Conf w/Clt nn-Physician + [id number] CPST Adult + [id number] Strength Based Case Mgmt + T1017 TCM - Targeted Case Management WAIVER SERVICE BUNDLE - Provid e the following services: + H2021 Wraparound Facilitation + S5150 Respite Care Individual + [id number] MH Attendant Care Waiver CRISIS SERVICE BUNDLE + H2011 Crisis Intervention Attd Care + [id number] Crisis Intervention BA level + [id number] Crisis Intervention QMHP Action steps: 1) walk away. 2) leave premises. 3. taking a nap. 4. talking with BF 5. go to hospital or call police, if needed. WAIVER SERVICE BUNDLE - Provid e the following services 1-3 times each week: + H2021 Wraparound Facilitation + S5110 Parent Support Individual + S5150 Respite Care Individual + S9485 Professional Resource Family Care + [id number] MH Attendant Care Waiver + T2038 Independent Living DISC CRISIS SERVICE BUNDLE + H2011 Crisis Intervention Attd Care + [id number] Crisis Intervention BA level + [id number] Crisis Intervention QMHP ADULT CASE MANAGEMENT SERVICE BUNDLE - Provide the following services 1-3 times each week: + 33128 Psychological Testing + 23281 Case Conf w/Clt nn-Physician + 75806 Case Conf w/o clt + family w/MD + 40652 Case Conf no Clt, no MD, w/QMHP + [id number] CPST Adult + [id number] Strength Based Case Mgmt + T1017 TCM - Targeted Case Management CM and client will find ways t o be successful in taking medications consistently. CM will teach cliient abot charan fullness vs willingness. ClM and client will see psycha iatrist at [facility] for medicartion adjustment. Client will meet with case man ager weekly. Client will meet with vocation al counselor weekly to address concerns client has throughout the week. WAIVER SERVICE BUNDLE - Provid e the following services 1-3 times each week: + H2021 Wraparound Facilitation + S5110 Parent Support Individual + T2038 Independent Living DISC Providers will assist client i n completing steps to attend [facility]. CM will encourage client to c omplete homework and turn in assignments for her online classes. VOCATIONAL SERVICES BUNDLE - P rovide the following services 1-3 times each week: + [id number] CPST Supported Employment + [id number] CPST Adult + H2017 Psychosocial Rehab Individual + T1017 TCM - Targeted Case Management CRISIS SERVICE BUNDLE + H2011 Crisis Intervention Attd Care + [id number] Crisis Intervention BA level + [id number] Crisis Intervention QMHP ADULT CASE MANAGEMENT SERVICE BUNDLE - Provide the following services 1-3 times each week: + [id number] Case Conf w/Clt nn-Physician + 79063 Case Conf w/o clt + family w/MD + 57199 Case Conf no Clt, no MD, w/QMHP + [id number] CPST Adult + [id number] Strength Based Case Mgmt + T1017 TCM - Targeted Case Management Client Reporting Associate and CM will continue to encourage client to complete homework and study, keep her motivated and interested in school so she will graduate. Client will utilize learned sk ills such as deep breathing and mindfulness. WAIVER SERVICE BUNDLE - Provid e the following services 1-3 times each week: + H2021 Wraparound Facilitation + S5110 Parent Support Individual + S5150 Respite Care Individual + S9485 Professional Resource Family Care + [id number] Attendant Care Waiver + T2038 Independent Living DISC CRISIS SERVICE BUNDLE + H2011 Crisis Intervention Attd Care + [id number] Crisis Intervention BA level + [id number] Crisis Intervention QMHP ADULT CASE MANAGEMENT SERVICE BUNDLE - Provide the following services 1-3 times each week: + [id number] Case Conf w/Clt nn-Physician + 60268 Case Conf w/o clt + family w/MD + 96190 Case Conf no Clt, no MD, w/QMHP + [id number] CPST Adult + [id number] Strength Based Case Mgmt + T1017 TCM - Targeted Case Management Providers will teach client ST OPP skill, Anger Iceberg, Anger as a Secondary Emotion through handouts, phone apps and other resources available in the community. Providers will assist client i n identifying triggers and ways to manage those triggers safely. CM will teach client time zachary white/structure to balance work, school, baby and family without having sense of overwhelm. CM will teach client skills to manage her anger such as deep breathing, mindfulness .ATT Initial Psychiatric Evaluation , Ongoing medication monitoring and management, Case Conference with multidisciplinary members of the MHC team as indicated, and/or Collaboration and coordination with outside medical providers as indicated by providing the following services: 37330 interactive complexity 78156 psychiatric diagnostic eval w/ meds 28800 30 min psychotherapy add-on 80061 [place] [address] 60 min psychotherapy add-on 96082 med injection 11004 New Patient E&M (level 1) 29075 New Patient E&M (level 2) 98423 New Patient E&M (level 3) 64068 New patient E&M (level 4) 32459 New Patient E&M (level 5) 48073 Established Patient E&M (level 1) 77829 Established Patient E&M (level 2) 98269 Established Patient E&M (level 3) 67386 Established Patient E&M (level 4) 25041 Established Patient E&M (level 5) 9935x prolonged service code 40900 case conference w/o clt & fam [place]/ [place] 538[address] case conference w/o clt w/ MD H0038 Peer Support Sarina ADULT CASE MANAGEMENT SERVICE BUNDLE - Provide the following services: + 69834 Case Conf w/Clt nn-Physician + [id number] CPST Adult + [id number] Strength Based Case Mgmt + T1017 TCM - Targeted Case Management WAIVER SERVICE BUNDLE - Provid e the following services: + H2021 Wraparound Facilitation + S5150 Respite Care Individual + [id number] MH Attendant Care Waiver CRISIS SERVICE BUNDLE + H2011 Crisis Intervention Attd Care + [id number] Crisis Intervention BA level + [id number] Crisis Intervention QMHP Action steps: 1) walk away. 2) leave premises. 3. taking a nap. 4. talking with BF 5. go to hospital or call police, if needed. Problems Active Concerns* FH: Depression* Code: [id number] * Start Date: SatJun 14 07:00:00 EST 2016 * Posttraumatic stress disorder* Code: [id number] * Start Date: SatJun 14 07:00:00 EST 2016 * Review of medication* Code: [id number] * Start Date: Sat 07:00:00 EST 2016 * Aggressive behavior* Code: [id number] * Start Date: SatJul 26 08:00:00 EDT 2016 * Aggressive outburst* Code: [id number] * Start Date: SatOct 12 08:00:00 EDT 2016 * Counseling procedure with explicit context* Code: [id number] * Start Date: SatJan 15 08:00:00 EDT 2016 * Mental health problem* Code: [id number] * Start Date: SatJun 01 07:00:00 EST 2017 * Mental health problem* Code: [id number] * Start Date: SatFeb 12 08:00:00 EDT 2018 Procedures No Known Procedures Social History Social History Observation Description Date Smoking Status Never Smoked SatApr 03 7:00:00 EST 2015 Sex Female SatOct 14 08:00:00 EDT 1997 Vital Signs Vital Sign Measurement Date Heart Rate 71 /MIN SatMar 19 13:30:00 EST 2017 Systolic 101 MM[HG] SatMar 19 13:30:00 EST 2017 Diastolic 59 MM[HG] SatMar 19 13:30:00 EST 2017 BP Position 2 Position SatMar 19 13:30:0 0 EST 2017 Height 5 5 ft SatMar 19 13:30:00 EST 2017 Height 65 in SatMar 19 13:30:00 EST 2017 Height 165.1 cm SatMar 19 13:30:00 EST 2018 Weight Lbs 131 lbs SatMar 19 13:30:00 EST 2017 Weight Kgs 59.5 KG SatMar 19 13:30:00 EST 2018 BMI 21.8 % SatMar 19 13:30:00 EST 2018
--- OUTSIDE RECORDS SUMMARY | 2019-10-21 22:52 | XMS REPORT | Clinical Summary ---
Author Author COLTON WHIPPLE [facility] Address Unknown Phone Unavailable Drug Allergies and Adverse Reactions SNOMED Allergy Type Code Substance Substance RxNorm code Reaction Severity Date Identified Date Resolved Status [id number] - Drug Allergy (disorder) COMPAZINE Problems SNOMED CT Problem Onset Date Ended Date Status Medications RxNorm Code Medication Began Ended Dosage Frequency Route Units Status Azithromycin 1 gm p.o. in clinic 2014 Active Rocephin 250 mg IM x 1 03/22/2015 Active Diagnostic Results Lab Results LOINC Code Lab Test Result Abnormal Completed Date CHLAMYDIA [0] N GONORRHEA [0] N HIV-KDHE4 4th GENERATION [0] N RPR [0] N URINE HCG POSITIVE[0] Y 1 05/21/2014 CHLAMYDIA NEGATIVE[0] N 1 05/23/2014 GONORRHEA NEGATIVE[0] N 1 05/23/2014 HIV-KDHE4 4th GENERATION NON-REACTIVE[0 ] N 03/22/2015 RPR NON-REACTIVE[0] N 04/2014 URINE HCG NEGATIVE[0] N 0 06/27/2016 HCG, QUANTITATIVE NC <1[0] N 06/28/2016 URINE HCG NEGATIVE[0] N 1 Encounters Date Location Type 10/22/2006 [facility][OL-IMMUNIZATION] CLINIC 03/21/2015 [facility][STD] CLINIC 03/22/2015 [facility][STD] CLINIC 06/27/2016 [facility][FP INITIAL VISIT] CLINIC 02/03/2018 [facility] CLINIC Vital Signs Date Height(cm) Weight(kg) Head Circ(cm) BP-Systolic BP-Diastolic Temperature(C) Respiration Heart Beat Oxygen(%)
--- OUTSIDE RECORDS SUMMARY | 2019-10-21 22:52 | XMS REPORT | Continuity of Care Document ---
Author Author COLTON Sandoval Organization Unknown Address [address] [address] Encounters Encounter Performer Location Date [facility] 05/25/2014
--- OUTSIDE RECORDS SUMMARY | 2019-10-21 22:52 | XMS REPORT | Clinical Summary ---
Author Author COLTON COUCH Organization Unknown Address Unknown Phone Unavailable Drug Allergies and Adverse Reactions SNOMED Allergy Type Code Substance Substance RxNorm code Reaction Severity Date Identified Date Resolved Status [id number] - Drug Allergy (disorder) COMPAZINE Problems SNOMED CT Problem Onset Date Ended Date Status Medications RxNorm Code Medication Began Ended Dosage Frequency Route Units Status Diagnostic Results Lab Results LOINC Code Lab Test Result Abnormal Completed Date CHLAMYDIA [0] N GONORRHEA [0] N HIV-KDHE4 4th GENERATION [0] N RPR [0] N URINE HCG POSITIVE[0] Y 1 05/21/2014 Encounters Date Location Type 10/22/2006 [facility][OL-IMMUNIZATION] CLINIC 03/21/2015 [facility][STD - OL] [facility] Vital Signs Date Height(cm) Weight(kg) Head Circ(cm) BP-Systolic BP-Diastolic Temperature(C) Respiration Heart Beat Oxygen(%)
--- OUTSIDE RECORDS SUMMARY | 2019-10-21 22:52 | XMS REPORT | Clinical Summary ---
Author Author COLTON KHANNA [facility] Address Unknown Phone Unavailable Drug Allergies and Adverse Reactions SNOMED Allergy Type Code Substance Substance RxNorm code Reaction Severity Date Identified Date Resolved Status [id number] - Drug Allergy (disorder) COMPAZINE Problems SNOMED CT Problem Onset Date Ended Date Status Medications RxNorm Code Medication Began Ended Dosage Frequency Route Units Status Azithromycin 1 gm p.o. in clinic 2014 Active Rocephin 250 mg IM x 1 03/22/2015 Active Diagnostic Results Lab Results LOINC Code Lab Test Result Abnormal Completed Date HCG, QUANTITATIVE NC [0] N URINE HCG POSITIVE[0] Y 1 05/21/2014 CHLAMYDIA NEGATIVE[0] N 1 05/23/2014 GONORRHEA NEGATIVE[0] N 1 05/23/2014 HIV-KDHE4 4th GENERATION NON-REACTIVE[0 ] N 03/22/2015 RPR NON-REACTIVE[0] N 04/2014 URINE HCG NEGATIVE[0] N 0 06/27/2016 Encounters Date Location Type 10/22/2006 [facility][OL-IM[facility]IZATION] CLINIC 03/21/2015 [facility][STD] CLINIC 03/22/2015 [facility][STD] CLINIC 06/27/2016 [facility][FP DROP INS] CLINIC Vital Signs Date Height(cm) Weight(kg) Head Circ(cm) BP-Systolic BP-Diastolic Temperature(C) Respiration Heart Beat Oxygen(%)
--- OUTSIDE RECORDS SUMMARY | 2019-10-21 22:52 | XMS REPORT | Clinical Summary ---
Author Author COLTON COUCH Organization Unknown Address Unknown Phone Unavailable Drug Allergies and Adverse Reactions SNOMED Allergy Type Code Substance Substance RxNorm code Reaction Severity Date Identified Date Resolved Status [id number] - Drug Allergy (disorder) COMPAZINE Problems SNOMED [...] [0] N HIV-KDHE4 4th GENERATION [0] N URINE HCG POSITIVE[0] Y 1 05/21/2014 RPR NON-REACTIVE[0] N 04/2014 Encounters Date Location Type 10/22/2006 [facility][OL-IMMUNIZATION] CLINIC 03/21/2015 [facility][STD - [facility]] [facility] 03/22/2015 [facility][STD - OL] C [facility] Vital Signs Date Height(cm) Weight(kg) Head Circ(cm) BP-Systolic BP-Diastolic Temperature(C) Respiration Heart Beat Oxygen(%)
--- OUTSIDE RECORDS SUMMARY | 2019-10-21 22:52 | XMS REPORT | Continuity of Care Document ---
Author Organization Unknown Address Unknown Phone Unavailable Allergies Active Description Code Type Severity Reaction Onset Reported/Identified Relationship to Patient Clinical Status Yes metoclopramide [id number] Dr colbert Allergy Severe Respiratory Dis 12/06/2017 Yes prochlorperazine [id number] Drug Allergy Moderate "STROKE SIDE EF Yes iodine [id number] Drug Allergy Moderate HIVES 10/21/[id number] sayra Allergy Moderate N/A 10/21/2019 Yes prochlorperazine [id number] Drug Allergy Moderate DYSTONIC 10/21/2019 Yes promethazine [id number] Drug Allergy Moderate N/A 10/21/2019 Medications There is no data. Problems Date Dx Coded Attending Type Code Diagnosis Diagnosed By 12/06/2017 MICK BONILLA K59.00 CONSTIPATION, UNSPECIFIED Procedures There is no data. Results Test Result Range Complete urinalysis with reflex to cultu re - 10/21/19 21:35 Urine color determination YELLOW NRG Urine clarity determination CLEAR NR G Urine pH measurement by test strip 7.0 5-9 Specific gravity of urine by test strip 1.015 1.016-1.022 Urine protein assay by test strip, semi-quantitative NEGATIVE NEGATIVE Urine glucose detection by automated test strip NE GATIVE NEGATIVE Erythrocytes detection in urine sediment by light micr oscopy NEGATIVE NEGATIVE Urine ketones detection by automated test strip NE GATIVE NEGATIVE Urine nitrite detection by test strip NEGATIVE NEGATIVE Urine total bilirubin detection by test strip NEGA TIVE NEGATIVE Urine urobilinogen measurement by automated test strip (mass/volume) 0.2 mg/dL < = 1.0 Urine leukocyte esterase detection by dipstick NEG ATIVE NEGATIVE Automated urine sediment erythrocyte cou nt by microscopy (number/high power field) RARE NRG Automated urine sediment leukocyte count by microscopy (number/high power field) NONE NRG Bacteria detection in urine sediment by light microsco py TRACE NRG Squamous epithelial cells detection in u rine sediment by light microscopy 0-2 NRG Crystals detection in urine sediment by light microsco py NONE NRG Casts detection in urine sediment by light microscopy NONE NRG Mucus detection in urine sediment by light microscopy SMALL NRG Complete urinalysis with reflex to culture NO NRG Complete blood count (CBC) with automate d white blood cell (WBC) differential - 10/21/19 22:02 Blood leukocytes automated count (number/volume) 7.5 10*3/uL 4.3-11.0 Blood erythrocytes automated count (number/volume) 4.44 10*6/uL 4.35-5.85 Venous blood hemoglobin measurement (mass/volume) 13.3 g/dL 11.5-16.0 Blood hematocrit (volume fraction) 40 % 35-52 Automated erythrocyte mean corpuscular volume 89 [ foz_us] 80-99 Automated erythrocyte mean corpuscular h emoglobin (mass per erythrocyte) 30 pg 25-34 Automated erythrocyte mean corpuscular h emoglobin concentration measurement (mass/volume) 34 g/dL 32-36 Automated erythrocyte distribution width ratio 12. 5 % 10.0- 14.5 Automated blood platelet count (count/volume) 225 10*3/uL 130-400 Automated blood platelet mean volume measurement 9.7 [foz_us] 7.4-10.4 Automated blood neutrophils/100 leukocytes 53 % 42-75 Automated blood lymphocytes/100 leukocytes 34 % 12-44 Blood monocytes/100 leukocytes 9 % 0-12 Automated blood eosinophils/100 leukocytes 3 % 0-10 Automated blood basophils/100 leukocytes 0 % 0-10 Blood neutrophils automated count (number/volume) 4.0 10*3 1.8-7.8 Blood lymphocytes automated count (number/volume) 2.6 10*3 1.0-4.0 Blood monocytes automated count (number/volume) 0. 7 10*3 0.0-1.0 Automated eosinophil count 0.3 10*3/uL 0 .0-0.3 Automated blood basophil count (count/volume) 0.0 10*3/uL 0.0-0.1 Comprehensive metabolic panel - 10/21/19 22:02 Serum or plasma sodium measurement (moles/volume) 139 mmol/L 135-145 Serum or plasma potassium measurement (moles/volume) 3.9 mmol/L 3.6-5.0 Serum or plasma chloride measurement (moles/volume) 107 mmol/L 98-107 Carbon dioxide 22 mmol/L 21-32 Serum or plasma anion gap determination (moles/volume) 10 mmol/L 5-14 Serum or plasma urea nitrogen measurement (mass/volume ) 15 mg/dL 7-18 Serum or plasma creatinine measurement (mass/volume) 0.73 mg/dL 0.60-1.30 Serum or plasma urea nitrogen/creatinine mass ratio 21 NRG Serum or plasma creatinine measurement w ith calculation of estimated glomerular filtration rate > NRG Serum or plasma glucose measurement (mass/volume) 81 mg/dL 70-105 Serum or plasma calcium measurement (mass/volume) 8.6 mg/dL 8.5-10.1 Serum or plasma total bilirubin measurement (mass/volu me) 0.5 mg/dL 0.1-1.0 Serum or plasma alkaline phosphatase dustin surement (enzymatic activity/volume) 74 U/L 40-136 Serum or plasma aspartate aminotransfera se measurement (enzymatic activity/volume) 19 U/L 5-34 Serum or plasma alanine aminotransferase measurement (enzymatic activity/volume) 16 U/L 0-55 Serum or plasma protein measurement (mass/volume) 6.5 g/dL 6.4-8.2 Serum or plasma albumin measurement (mass/volume) 4.0 g/dL 3.2-4.5 CALCIUM CORRECTED 8.6 mg/dL 8.5-10.1 Serum or plasma amylase measurement (enz ymatic activity/volume) - 10/21/19 22:02 Serum or plasma amylase measurement (enzymatic activit y/volume) 68 U/L 25-125 Lipase - 10/21/19 22:02 Lipase 40 U/L 8-78 Encounters ACCT No. Visit Date/Time Discharge Status Pt. Type Provider Facility Loc./Unit Complaint [id number] 04/18/2019 16:00:00 04/18/2019 23:59: 59 CLS Out[facility] [id number] 12/06/2017 11:28:00 8 14:20:00 DIS Emergency MICK BONILLA [facility] COL.ER [id number] 10/21/2019 21:23:[address] Emergency MELINDA ISAAC DO [facility] ER ABD PAIN,BACK PAIN,NAUSEA,HE ADACHE
[2019-10-21] MEDS ORDERED: RX-CYCLOBENZAPRINE 10 MG (FLEXERIL) TAB PPK#3 PO STA (23:18)
[2019-10-21] MEDS ORDERED: CYCL10TA9 PO (23:18)
[2019-10-21] MEDS ORDERED: RX-NAPROXEN (NAPROSYN) 250 MG TAB PPK#4 PO STA (23:18)
[2019-10-21] MEDS ORDERED: NAPR500T8 PO (23:18)
[2019-10-21 23:44] VITALS: BP 120/78
--- NOTE | 2019-10-22 06:05 | Diagnostic Imaging Report ---
EXAM: ABDOMEN, FLAT UPRIGHT/DECUB INDICATION: Abdominal and back pain. COMPARISON: None. FINDINGS: Large amount of stool throughout the colon. IUD. Nonspecific small bowel gas pattern. No acute osseous findings. IMPRESSION: 1. No acute radiographic findings in the abdomen. 2. Large amount of stool throughout the colon suggesting constipation. Dictated by: Dictated on workstation # [id number]
--- NOTE | 2019-10-22 06:07 | Diagnostic Imaging Report ---
PROCEDURE: CT urinary tract, rule out kidney stone. TECHNIQUE: Multiple contiguous axial images were obtained through the abdomen and pelvis without the use of intravenous contrast. Auto Exposure Controls were utilized during the CT exam to meet ALARA standards for radiation dose reduction. INDICATION: Abdominal and back pain. COMPARISON: Abdominal radiographs also performed today. FINDINGS: Lung bases are clear. Several nonobstructing calyceal tip renal stones in both kidneys measuring up to 0.3 cm. The liver, gallbladder, pancreas, spleen, adrenals, ureters and unopacified bladder are negative. Normal appendix. No free intraperitoneal air or fluid. No lymphadenopathy. No evidence of bowel obstruction. No acute osseous findings. IMPRESSION: 1. No acute CT findings in the abdomen or pelvis on this noncontrast exam. 2. Bilateral nonobstructing calyceal tip renal stones. No ureteral stones or hydronephrosis. Dictated by: Dictated on workstation # [id number]
== END 2019-10-21 23:42 | disposition home or self-care (01) ==
LOC: ER 21:23
DX: R10.32 Left lower quadrant pain (principal); Z88.8 Allergy status to other drugs, medicaments and biological substances; Z79.3 Long term (current) use of hormonal contraceptives
CPT/HCPCS: 36415; 74019; 74176; 80053; 81000; 82150; 83690; 84703; 85025; 96361; 96374

== ENCOUNTER 2020-01-22 09:30 | Emergency (ER) | payer OTHER, MEDICAID ==
[~2020-01-22] VITALS: Ht 162 cm; Wt 66.0 kg
[~2020-01-22 09:30] MED LIST: CYCL10TA9 PO; NAPR500T8 PO
[2020-01-22 09:35] VITALS: BP 120/80
--- NOTE | 2020-01-22 10:00 | ED GU-Female ---
General Chief Complaint: - Urinary Stated Complaint: UTI Nursing Triage Note: PT CO OF UTI SXSTATES WAS SEEN AT [facility] ON SATURDAY, STATES IS ON ANTIBIOTIC MACROBID AND HAS RASH ON LEGS. PT STATES IS TIRED,HAS VOMITED THIS AM AND CONT PAIN AND BURNING UPON URININATION Nursing Sepsis Screen: No Definite Risk Source: patient Exam Limitations: no limitations History of Present Illness Date Seen by Provider: Jan 22, 2020 Time Seen by Provider: 09:48 Initial Comments Patient is a 24-year-old female who presents to the emergency department today with a chief complaint of worsening feelings of dysuria, urgency, feeling nauseated and increased fatigue and lightheaded. Patient states that she was seen at [facility] on Saturday of this last week diagnosed with urinary tract infection. She states that she was placed on antibiotics to be taken twice a day for 5 days. She states initially she got better but now this mornin g is worse again. Patient is also concerned about a rash to her proximal thighs. She states she has been taking some Azo with some relief of symptoms however she is not had any yesterday or today. Patient denies any history of sexually transmitted infections. She is not currently having any vaginal discharge. No painful intercourse. No abnormal vaginal bleeding. She does have an IUD in place. Denies any back pain or fevers. All other review of systems reviewed and negative except as stated. Timing/Duration: week Severity/Quality: moderate, burning, cramping Location: suprapubic Radiation: none Activities at Onset: none Prior Genitourinary Problems: none Sexual [place] History: not active, single partner Associated Symptoms: No abdominal pain, No fever/chills, No loss of bladder control; nausea/vomiting, urinary frequency, other Allergies and Home Medications Allergies Coded Allergies: iodine (Verified Allergy, Intermediate, HIVES, 10/21/19) metoclopramide (Verified Allergy, Intermediate, 10/21/19) prochlorperazine (Verified Allergy, Intermediate, DYSTONIC, 10/21/19) promethazine (Verified Allergy, Intermediate, 10/21/19) Home Medications Cyclobenzaprine HCl 10 Mg Tablet, 10 MG PO Q8H PRN for SPASMS Prescribed by: MELINDA ISAAC on 10/21/19 8765 Levofloxacin 250 Mg Tablet, 250 MG PO DAILY Prescribed by: ARSLAN RAYMOND on 01/22/20 1001 Naproxen 500 Mg Tablet.dr, 500 MG PO BID Prescribed by: MELINDA ISAAC on 10/21/19 2318 Ondansetron 4 Mg Tab.rapdis, 4 MG PO Q8H Prescribed by: ARSLAN RAYMOND on 01/22/20 1001 Patient Home Medication List Home Medication List Reviewed: Yes Review of Systems Review of Systems Constitutional: no symptoms reported EENTM: no symptoms reported Respiratory: no symptoms reported Cardiovascular: no symptoms reported Gastrointestinal: nausea, vomiting Genitourinary: burning; denies discharge; dysuria, frequency; denies flank pain, denies hematuria, denies incontinence, denies pain; urgency Musculoskeletal: no symptoms reported Skin: lesions, rash All Other Systemes Reviewed Negative Unless Noted: Yes Past Ivixqbv-Wufxxc-Enfema Hx Patient Social History Alcohol Use: Denies Use Recreational Drug Use: No Smoking Status: Never a Smoker Recent Foreign Travel: No Contact w/Someone Who Travel: No Recent Infectious Disease Expo: No Recent Hopitalizations: No Physical Abuse: No Sexual Abuse: No Past Medical History Surgeries: No Respiratory: No Cardiac: No Neurological: No Last Menstrual Period: Jan 05, 2020 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 oz. kg; 25.00 BMI Method: General Appearance: WD/WN, no apparent distress HEENT: PERRL/EOMI Neck: full range of motion Cardiovascular: regular rate, rhythm, no murmur Respiratory: chest non-tender, lungs clear, normal breath sounds, no respiratory distress, no accessory muscle use Gastrointestinal: normal bowel sounds, non tender, soft Pelvic: other (deferred) Back: normal inspection, no CVA tenderness Extremities: normal range of motion Skin: normal color, warm/dry, rash (Patient has rash consistent with folliculitis over the mons pubis as well as the proximal medial thighs) Progress/Results/Core Measures Suspected Sepsis Recent Fever Within 48 Hours: No Infection Criteria Present: None New/Unexplained Altered Menta: No Sepsis Screen: No Definite Risk SIRS Temperature: Pulse: 74 Respiratory Rate: 18 Blood Pressure 120 /80 Mean: 93 Results/Orders Lab Results Laboratory Tests Test 01/22/20 09:44 Range/Units Urine Color YELLOW Urine Clarity CLEAR Urine pH 6.5 5-9 Urine Specific [place] 1.010 L 1.016-1.022 Urine Protein NEGATIVE NEGATIVE Urine Glucose (UA) NEGATIVE NEGATIVE Urine Ketones NEGATIVE NEGATIVE Urine Nitrite NEGATIVE NEGATIVE Urine Bilirubin NEGATIVE NEGATIVE Urine Urobilinogen 0.2 < = 1.0 MG/DL Urine Leukocyte Esterase 1+ H NEGATIVE Urine RBC (Auto) NEGATIVE NEGATIVE Urine RBC NONE /HPF Urine WBC 5-10 H /HPF Urine Squamous Epithelial Cells 5-10 /HPF Urine Crystals NONE /LPF Urine Bacteria FEW H /HPF Urine Casts NONE /LPF Urine Mucus NEGATIVE /LPF Urine Other FEW SPERM H /HPF Urine Culture Indicated YES Urine Test NEGATIVE NEGATIVE My Orders Orders - ARSLAN RAYMOND MD Ua Culture If Indicated (01/22/20 10:02) Hcg,Qualitative Urine (01/22/20 10:02) Urine Culture (01/22/20 09:44) Vital Signs/I&O 01/22/20 09:35 Temp 36.5 Pulse 74 Resp 18 B/P (MAP) 120/80 (93) Pulse Ox 97 Capillary Refill : Less Than 3 Seconds Blood Pressure Mean: 93 Progress Note : Time: 10:23 Progress Note Patient seen and examined, evaluation today includes a physical exam, urinalysis and urine test. Patient's urinalysis showed some mild bacteria mild leukocyte esterase. She did have 5-10 squamous epithelial cells per high- powered field. Secondary the patient's ongoing symptoms and actually returned and worsening of symptoms I elected to treat her with Levaquin once a day. I have instructed her to stop taking the Macrobid and to start Levaquin. I gave her prescription for some Zofran for nausea. Patient is encouraged to take Azo for the dysuria. She is given work and school note releases. She is given good return precautions. All questions were sought and answered and she is stable for discharge. Departure Impression Primary Impression: Urinary tract infection Qualified Codes: N30.00 - Acute cystitis without hematuria Disposition: HOME, SELF-CARE Condition: Stable Departure-Patient Inst. Referrals: NO,LOCAL PHYSICIAN (PCP/Family) Primary Care Physician Patient Instructions: Urinary Tract Infection, Adult (DC) Add. Discharge Instructions: Please drink plenty of fluids to stay well-hydrated. Continue to use mqra-blb-dgjbsth Azo for bladder spasms, pain when urinating. You can use this up to 3 times a day. I have changed your antibiotics to Levaquin. This is 1 time a day for the next 5 days. I have also given you a prescription for Zofran which is nausea medication. If you develop fever over 101, worsening pain with urination, back pain, worse nausea and vomiting or any other emergent concerns please come back to the emergency department for reevaluation. All discharge instructions reviewed with patient and/or family. Voiced understanding. Scripts Levofloxacin (Levofloxacin) 250 Mg Tablet 250 MG PO DAILY for 5 Days, #5 TAB Prov: ARSLAN RAYMOND MD 01/22/20 Ondansetron (Ondansetron Odt) 4 Mg Tab.rapdis 4 MG PO Q8H for nausea, #10 TAB Prov: ARSLAN RAYMOND MD 01/22/20 Work/School Note: Family Work Note, Patient Received Medical Care In the Emergency Department On: Jan 22, 2020 Patient Will Be Able to Return to Work/School On: Jan 23, 2020 School/Childcare Release Date Seen in the Emergency Department: Jan 22, 2020 Time Dismissed from Emergency Department: 10:30 Return to School: Jan 25, 2020 ARSLAN RAYMOND MD Jan 22, 2020 10:00
[2020-01-22] MEDS ORDERED: LEVO250T46 PO (10:01)
[2020-01-22] MEDS ORDERED: ONDA4TAB11 PO (10:01)
[2020-01-22 10:07] LABS: BILIRUBIN,URINE NEGATIVE (NEGATIVE); CLARITY,URINE CLEAR; COLOR,URINE YELLOW; GLUCOSE, URINE (UA) NEGATIVE (NEGATIVE); KETONES,URINE NEGATIVE (NEGATIVE); LEUKOCYTE ESTERASE ,URINE 1+ (NEGATIVE); NITRITE,URINE NEGATIVE (NEGATIVE); PH,URINE 6.5 (5-9); PROTEIN,URINE NEGATIVE (NEGATIVE)
[2020-01-22 10:15] LABS: BACTERIA,URINE FEW /HPF
[2020-01-22 10:16] LABS: URINE OTHER FEW SPERM /HPF
== END 2020-01-22 10:22 | disposition home or self-care (01) ==
LOC: EDUNIT# 09:30 → ER 09:33
DX: N39.0 Urinary tract infection, site not specified (principal); Z91.041 Radiographic dye allergy status; Z88.1 Allergy status to other antibiotic agents
CPT/HCPCS: 81000; 84703; 87088; 99282

== ENCOUNTER 2021-04-13 10:49 | Emergency (ER) | payer OTHER, MEDICAID ==
[~2021-04-13] VITALS: Ht 162.6 cm; Wt 64.9 kg
[~2021-04-13 10:49] MED LIST changes: +CYCL10TA25 PO; -CYCL10TA9 PO; +LVF250T PO; +ONDA4TAB11 PO
--- OUTSIDE RECORDS SUMMARY | 2021-04-13 10:55 | XMS REPORT | Clinical Summary ---
Author Author [facility] Organization [facility] Address Unknown Phone Unavailable Care Team Providers Care Learning Disabilities Specialist Name Role Phone Bharti Bowles MD [phone] No Pcp, Na PCP Unavailable Source Comments Some departments are not documenting in the electronic medical record. If you d o not see the information that you expected, contact Release of Information in [facility] [employer] Information Management department at [phone] for further assistan ce in locating additional records.[facility] Allergies Comments Active Allergy Reactions Severity Noted Date Face was drooping and slurred speak Prochlorperazine SEE COMMENTS 08/17/2013 Edisylate Medications End Date Status Medication Sig Dispensed Refills Start Date Active ATENOLOL PO Take by 0 mouth daily. Active escitalopram oxalate Take 10 mg by 0 (LEXAPRO) 10 mg tablet mouth daily. Active zonisamide (ZONEGRAN) 25 Take 25 mg by 0 mg capsule mouth daily. Active fludrocortisone Take 0.1 mg 0 (FLORINEF) 0.1 mg tablet by mouth daily. Active lamoTRIgine (LAMICTAL) Take 200 mg 0 150 mg tablet by mouth at bedtime daily. Active risperiDONE (RISPERDAL) Take 0.25 mg 0 0.25 mg tablet by mouth at bedtime daily. Active Cetirizine 10 mg cap Take by 0 mouth at bedtime daily. Active norethindrone-ethinyl Take 1 Tab by 84 Tab 3 estradiol(+) (MICROGESTIN mouth daily. 5 05/11 (21); LOESTRIN 05/11 (21); JUNEL 05/11 (21)) tablet Active Problems Problem Noted Date control counseling 01/13/2015 Dysmenorrhea in the adolescent 08/18/2013 Migraine 08/18/2013 Medical History Medical History Date Comments Migraines Family History Medical History Relation Name Comments Cancer-Colon Other Cancer-Breast Paternal Grandmother Anesthetic Complication Neg Hx Bleeding Disorders Neg Hx Cancer Neg Hx Cancer-Ovarian Neg Hx Cancer-Uterine Neg Hx Diabetes Neg Hx Heart Disease Neg Hx VTE Neg Hx Relation Name Status Comments Other Paternal Grandmother Social History Date Tobacco Use Types Packs/Day Years Used Never Smoker Smokeless Tobacco: Never Used Comments Alcohol Use Standard Drinks/Week No 0 (1 standard drink = 0.6 o z pure alcohol) Sex Assigned at Date Recorded Not on file Last Filed Vital Signs Reading Time Taken Comments Vital Sign 105/49 01/12/2015 2:42 PM CDT Blood Pressure 72 01/12/2015 2:42 PM CDT Pulse - - Temperature - - Respiratory Rate - - Oxygen Saturation - - Inhaled Oxygen Concentration 62.6 kg (138 lb 1.6 oz) 01/12/2015 2:42 PM CDT Weight 163.8 cm (5' 4.5") 01/12/2015 2:42 PM CDT Height 23.34 01/12/2015 2:42 PM CDT Body Mass Index Plan of Treatment Health Maintenance Due Date Last Done Comments CHLAMYDIA SCREENING 18-24 1997 YEARS HPV VACCINES (1 - 2-dose 2008 series) HIV SCREENING 2012 DTAP/TDAP VACCINES (1 - 10/15/2015 Tdap) HEPATITIS C SCREENING 10/15/2015 PHYSICAL (COMPREHENSIVE) 10/15/2015 EXAM CERVICAL CANCER SCREENING 2018 INFLUENZA VACCINE 11/20/2020 Results Not on filefrom Last 3 Months Insurance Type Payer Benefit Subscriber ID Effective Phone Address Plan / Dates Group Indemnity [facility] [id number] 2019-P CHOICE/CHO resent ICE PLUS [id number] Advance Directives Patient [employer] Explanation Type Date Recorded Advance 10/16/2014 4:32 AM Directive/DPOA Care Teams Start Date End Date Learning Disabilities Specialist Relationship Specialty 8/17/15 No Pcp, Na PCP - General 08/17/13 Bharti Bowles MD Consulting Obstetrics & [address] Physician Gynecology [address] [place] [id number]
--- OUTSIDE RECORDS SUMMARY | 2021-04-13 10:55 | XMS REPORT | Clinical Summary ---
Author Author [facility] Organization [facility] Address Unknown Phone Unavailable Care Team Providers Care Public Service Representative Name Role Phone PCP Unavailable Allergies Not on File Medications Not on file Active Problems Not on file Social History Date Tobacco Use Types Packs/Day Years Used Never Assessed Sex Assigned at Date Recorded Not on file Last Filed Vital Signs Not on file Plan of Treatment Health Maintenance Due Date Last Done Comments Varicella Vaccines (1 of 1998 2 - 2-dose childhood series) COVID-19 Vaccine (1) 2002 HPV Vaccines (1 - 2-dose 2008 series) Hepatitis C Screening 10/15/2015 DTaP,Tdap,and Td Vaccines 2016 (1 - Tdap) MMR Vaccines-Adult 2016 Cervical Cancer Screening 2018 Influenza Vaccine (#1) 2020 Pneumo-Vaccine: 65+Yrs (1 2062 of 1 - PPSV23) HIB Vaccines Aged Out No longer eligible based on patient's age to complete this topic IPV Vaccines Aged Out No longer eligible based on patient's age to complete this topic MenB Vaccine (Bexsero) Aged Out No longer eligi ble based on patient's age to complete this topic Meningococcal Vaccine Aged Out No longer eligib le based on patient's age to complete this topic Pneumo-Vaccine: Peds (0-5 Aged Out No longer el igible based on patient's age to Yrs) & At-Risk Patients complete this topic (6-64 Yrs) Rotavirus Vaccines Aged Out No longer eligible based on patient's age to complete this topic Results Not on filefrom Last 3 Months Insurance Type Payer Benefit Subscriber ID Effective Phone Address Plan / Dates Group [facility] [id number] 2017-P [phone] [facility] [id number] [facility] [id number] [facility] [employer] [address] [id number] [address]- [address] [employer] Present [address] [place] [address]
[2021-04-13] MEDS ORDERED: KETOROLAC 30 MG/ML VIAL IVP ONE (11:00)
--- NOTE | 2021-04-13 11:03 | ED General ---
General Stated Complaint: CP,DELGADO,CONGESTION Source of Information: Patient Exam Limitations: No Limitations (ANGELIKA CASTLE APRN) History of Present Illness Date Seen by Provider: Apr 13, 2021 Time Seen by Provider: 11:01 Initial Comments To ER with chest pain sharp in nature headache and nasal congestion. Symptoms present for 2 weeks and she came out of Covid quarantine having had Covid, quarantine ended on 03/25/2021. No fevers. Pain is sharp in nature worsened by deep breathing. Timing/Duration: 1-2 Days Severity: Moderate Associated Systoms: Chest Pain, Headaches (ANGELIKA CASTLE APRN) Allergies and Home Medications Allergies Coded Allergies: iodine (Verified Allergy, Intermediate, HIVES, 10/21/19) metoclopramide (Verified Allergy, Intermediate, 10/21/19) prochlorperazine (Verified Allergy, Intermediate, DYSTONIC, 10/21/19) promethazine (Verified Allergy, Intermediate, 10/21/19) Patient Home Medication List Home Medication List Reviewed: Yes (ANGELIKA CASTLE APRN) Azithromycin (Azithromycin) 250 Mg Tablet, 250 MG PO UD Prescribed by: ANGELIKA CASTLE on 04/13/21 1143 Cyclobenzaprine HCl (Cyclobenzaprine HCl) 10 Mg Tablet, 10 MG PO Q8H PRN for SPASMS Prescribed by: MELINDA ISAAC on 10/21/19 2318 Levofloxacin (Levofloxacin) 250 Mg Tablet, 250 MG PO DAILY Prescribed by: ARSLAN RAYMOND on 01/22/20 1001 Naproxen (Naproxen) 500 Mg Tablet.dr, 500 MG PO BID Prescribed by: MELINDA ISAAC on 10/21/19 2318 Ondansetron (Ondansetron Odt) 4 Mg Tab.rapdis, 4 MG PO Q8H Prescribed by: ARSLAN RAYMOND on 01/22/20 1001 Prednisone (Prednisone) 20 Mg Tab, 40 MG PO DAILY Prescribed by: ANGELIKA CASTLE on 04/13/21 1143 Review of Systems Review of Systems Constitutional: see HPI EENTM: see HPI Respiratory: no symptoms reported Cardiovascular: see HPI, chest pain Genitourinary: no symptoms reported Musculoskeletal: no symptoms reported Skin: no symptoms reported Hematologic/Lymphatic: No Symptoms Reported (ANGELIKA CASTLE APRN) Past Bgtqgpz-Kpiktj-Kstlgl Hx Past Medical History Surgeries: No Respiratory: No Cardiac: No Neurological: No 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 oz. kg; 25.00 BMI Method: General Appearance: No Apparent Distress, WD/WN, Other (Heart rate 109 sinus oxygen 99% room air) Eyes: Bilateral Eye Normal Inspection, Bilateral Eye PERRL Neck: Full Range of Motion, Normal Inspection Respiratory: Normal Breath Sounds, No Accessory Muscle Use, No Respiratory Distress Cardiovascular: Normal Peripheral Pulses, Tachycardia Gastrointestinal: Normal Bowel Sounds, Non Tender, Soft Neurologic/Psychiatric: Alert, Oriented x3 Skin: Normal Color, Warm/Dry (ANGELIKA CASTLE APRN) Progress/Results/Core Measures Suspected Sepsis SIRS Temperature: Pulse: Respiratory Rate: Laboratory Tests 04/13/21 11:04: White Blood Count 9.2 Blood Pressure / Mean: Laboratory Tests 04/13/21 11:04: Creatinine 0.75, Platelet Count 184 (ANGELIKA CASTLE APRN) Results/Orders Lab Results Laboratory Tests Test 04/13/21 11:04 Range/Units White Blood Count 9.2 4.3-11.0 10^3/uL Red Blood Count 4.69 3.80-5.11 10^6/uL Hemoglobin 14.2 11.5-16.0 g/dL Hematocrit 42 35-52 % Mean Corpuscular Volume 90 80-99 fL Mean Corpuscular Hemoglobin 30 25-34 pg Mean Corpuscular Hemoglobin Concent 34 32-36 g/dL Red Cell Distribution Width 11.9 10.0-14.5 % Platelet Count 184 130-400 10^3/uL Mean Platelet Volume 9.8 9.0-12.2 fL Immature Granulocyte % (Auto) 0 % Neutrophils (%) (Auto) 85 H 42-75 % Lymphocytes (%) (Auto) 8 L 12-44 % Monocytes (%) (Auto) 5 0-12 % Eosinophils (%) (Auto) 2 0-10 % Basophils (%) (Auto) 0 0-10 % Neutrophils # (Auto) 7.9 H 1.8-7.8 10^3/uL Lymphocytes # (Auto) 0.7 L 1.0-4.0 10^3/uL Monocytes # (Auto) 0.4 0.0-1.0 10^3/uL Eosinophils # (Auto) 0.2 0.0-0.3 10^3/uL Basophils # (Auto) 0.0 0.0-0.1 10^3/uL Immature Granulocyte # (Auto) 0.0 0.0-0.1 10^3/uL Neutrophils % (Manual) 88 % Lymphocytes % (Manual) 8 % Monocytes % (Manual) 1 % Eosinophils % (Manual) 2 % Basophils % (Manual) 0 % Band Neutrophils 1 % Blood Morphology Comment NORMAL D-Dimer 0.48 0.00-0.49 UG/ML Sodium Level 139 135-145 MMOL/L Potassium Level 4.0 3.6-5.0 MMOL/L Chloride Level 107 98-107 MMOL/L Carbon Dioxide Level 22 21-32 MMOL/L Anion Gap 10 5-14 MMOL/L Blood Urea Nitrogen 8 7-18 MG/DL Creatinine 0.75 0.60-1.30 MG/DL Estimat Glomerular Filtration Rate 96 BUN/Creatinine Ratio 11 Glucose Level 80 70-105 MG/DL Calcium Level 8.9 8.5-10.1 MG/DL C-Reactive Protein High Sensitivity 1.60 H 0.00-0.50 MG/DL Procalcitonin 0.03 <0.10 NG/ML Serum Test, Qualitative NEGATIVE NEGATIVE (MELINDA ISAAC DO) Medications Given in ED Current Medications Medications Dose Ordered Sig/Anne-Marie Route Start Time Stop Time Status Last Admin Dose Admin Ketorolac Tromethamine 30 mg ONCE ONCE IVP 04/13/21 11:00 04/13/21 11:01 DC 04/13/21 11:15 30 MG (FERNANDO ISAACA Irasema BARRAGAN) Vital Signs/I&O 04/13/21 04/13/21 10:56 12:20 Temp 37.2 Pulse 109 92 Resp 19 19 B/P (MAP) 128/87 (101) 119/73 Pulse Ox 100 O2 Delivery Room Air Room Air (MELINDA ISAAC DO) Vital Signs/I&O Capillary Refill : (ANGELIKA CASTLE APRN) Departure Impression Primary Impression: Pleuritic chest pain Additional Impression: Sinusitis Disposition: 01 HOME, SELF-CARE Condition: Stable Departure-Patient Inst. Decision time for Depature: 11:41 (ANGELIKA CASTLE APRN) Referrals: NO,LOCAL PHYSICIAN (PCP/Family) Primary Care Physician Patient Instructions: Sinus Headache (DC), Pleuritic Chest Pain (DC) Add. Discharge Instructions: 1. Return to ER for concerns 2. Follow-up with your doctor next week 3. Scripts Prednisone (Prednisone) 20 Mg Tab 40 MG PO DAILY, #6 TAB 0 Refills Prov: ANGELIKA CASTLE APRN 04/13/21 Azithromycin (Azithromycin) 250 Mg Tablet 250 MG PO UD, #6 TAB TAKE 2 TABLETS ON DAY ONE THEN TAKE 1 TABLET DAILY FOR FOUR MORE DAYS Prov: ANGELIKA CASTLE APRN 04/13/21 ATTENDING PHYSICIAN NOTE: I WAS PHYSICALLY PRESENT ER PHYSICIAN WHEN THIS PATIENT WAS IN ER, BUT I WAS NOT INVOLVED IN ANY DECISION MAKING OR ANY CARE OF THIS PATIENT. (MELINDA ISAAC DO) ANGELIKA CASTLE APRN Apr 13, 2021 11:02 MELINDA ISAAC DO Apr 13, 2021 12:34
[2021-04-13 11:14] LABS: BASOPHILS % (AUTO) 0 % (0-10); EOSINOPHILS # (AUTO) 0.2 10^3/uL (0.0-0.3); EOSINOPHILS % (AUTO) 2 % (0-10); HEMATOCRIT 42 % (35-52); HEMOGLOBIN 14.2 g/dL (11.5-16.0); LYMPHOCYTES # (AUTO) 0.7 10^3/uL (1.0-4.0); LYMPHOCYTES % (AUTO) 8 % (12-44); MEAN CORPUSCULAR HEMOGLOBIN 30 pg (25-34); MEAN CORPUSCULAR HGB CONC 34 g/dL (32-36); MEAN CORPUSCULAR VOLUME 90 fL (80-99); MEAN PLATELET VOLUME 9.8 fL (9.0-12.2); MONOCYTES # (AUTO) 0.4 10^3/uL (0.0-1.0); MONOCYTES % (AUTO) 5 % (0-12); NEUTROPHILS # (AUTO) 7.9 10^3/uL (1.8-7.8); NEUTROPHILS % (AUTO) 85 % (42-75); PLATELET COUNT 184 10^3/uL (130-400); WHITE BLOOD COUNT 9.2 10^3/uL (4.3-11.0)
[2021-04-13 11:33] LABS: CALCIUM 8.9 MG/DL (8.5-10.1)
--- NOTE | 2021-04-13 11:35 | Diagnostic Imaging Report ---
INDICATION: Cough COMPARISON: None. FINDINGS: Frontal view of the chest demonstrates clear lungs bilaterally. The heart size is normal. There is no pneumothorax. Osseous structures are normal. IMPRESSION: No acute findings. Normal chest. Dictated by: Dictated on workstation # [id number]
[2021-04-13 11:37] LABS: CREATININE SERUM 0.75 MG/DL (0.60-1.30)
[2021-04-13] MEDS ORDERED: PRD20T PO (11:43)
[2021-04-13] MEDS ORDERED: AZIT250T12 PO (11:43)
[2021-04-13 12:20] VITALS: BP 119/73
[2021-04-13 12:31] LABS: BAND NEUTROPHILS 1 %; BASOPHILS % (MANUAL) 0 %; EOSINOPHILS % (MANUAL) 2 %; LYMPHOCYTES % (MANUAL) 8 %; MONOCYTES % (MANUAL) 1 %; NEUTROPHILS % (MANUAL) 88 %; RBC MORPH NORMAL
== END 2021-04-13 12:20 | disposition home or self-care (01) ==
LOC: EDUNIT# 10:49 → ER 10:51
DX: R07.81 Pleurodynia (principal); J32.9 Chronic sinusitis, unspecified
CPT/HCPCS: 36415; 71045; 80048; 84145; 84703; 85007; 85027; 85379; 86141

== ENCOUNTER 2022-01-21 16:09 | Emergency (ER) | payer OTHER, MEDICAID ==
[~2022-01-21 16:09] MED LIST changes: +AZIT250T12 PO; +LEVO250T66 PO; -LVF250T PO; +PRD20T PO
--- NOTE | 2022-01-21 17:07 | ED General ---
General Chief Complaint: Chest Pain Stated Complaint: BUD UNABLE TO STAY AWAKE HEADACHE Nursing Triage Note: PT AMB TO RM 8 WITH C/O DELGADO, CHILLS AND SLEEPING MORE THAN NORMAL SINCE SATURDAY. PT ALSO STATES SHE HAS HAD PAIN UNDER L BREAST THAT COMES AND GOES History of Present Illness Date Seen by Provider: Jan 21, 2022 Time Seen by Provider: 16:30 Initial Comments Patient is a 26 yo F who presents to the ED with malaise, headache, chills, fatigue, and mild intermittent chest pain. She denies any known sick contacts. No fever. States symptoms began 4 days ago. She states she went to bed last night at 0930 and woke up today at 1530. This concerned her prompting her to present to the ED. Denies N/V/D, stiff neck, cough. Timing/Duration: 4-5 Days Allergies and Home Medications Allergies Coded Allergies: iodine (Verified Allergy, Intermediate, HIVES, 10/21/19) metoclopramide (Verified Allergy, Intermediate, 10/21/19) prochlorperazine (Verified Allergy, Intermediate, DYSTONIC, 10/21/19) promethazine (Verified Allergy, Intermediate, 10/21/19) Patient Home Medication List Home Medication List Reviewed: Yes Azithromycin (Azithromycin) 250 Mg Tablet, 250 MG PO UD Prescribed by: ANGELIKA CASTLE on 04/13/21 114 Cyclobenzaprine HCl (Cyclobenzaprine HCl) 10 Mg Tablet, 10 MG PO Q8H PRN for SPASMS Prescribed by: MELINDA ISAAC on 10/21/192317 Levofloxacin (Levofloxacin) 250 Mg Tablet, 250 MG PO DAILY Prescribed by: ARSLAN RAYMOND on 01/22/20 1001 Naproxen (Naproxen) 500 Mg Tablet.dr, 500 MG PO BID Prescribed by: MELINDA ISAAC on 10/21/192317 Ondansetron (Ondansetron Odt) 4 Mg Tab.rapdis, 4 MG PO Q8H Prescribed by: ARSLAN RAYMOND on 01/22/20 1001 Prednisone (Prednisone) 20 Mg Tab, 40 MG PO DAILY Prescribed by: ANGELIKA CASTLE on 04/13/21 1143 Review of Systems Review of Systems Constitutional: chills; No diaphoresis, No fever; malaise EENTM: no symptoms reported Respiratory: no symptoms reported Cardiovascular: chest pain; No palpitations, No syncope Gastrointestinal: no symptoms reported Genitourinary: no symptoms reported Musculoskeletal: no symptoms reported Skin: no symptoms reported Psychiatric/Neurological: Headache Hematologic/Lymphatic: No Symptoms Reported Immunological/Allergic: no symptoms reported Past Yuvmehb-Puzafu-Uldvcw Hx Patient Social History Tobacco Use?: No Use of E-Cig and/or Vaping dev: No Substance use?: No Alcohol Use?: Yes Alcohol Frequency: Once in a while Pt feels they are or have been: No Immunizations Up To Date Influenza Vaccine Up-to-Date: Yes; Up-to-Date Past Medical History Surgery/Hospitalization HX: MIGRAINES, ADHD Surgeries: No Respiratory: No Cardiac: No Neurological: No 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 oz. kg; 24.00 BMI Method: General Appearance: No Apparent Distress, WD/WN HEENT: PERRL/EOMI, TMs Normal Neck: Full Range of Motion, Normal Inspection Respiratory: Chest Non Tender, Lungs Clear, Normal Breath Sounds Cardiovascular: Regular Rate, Rhythm, No Edema, No Gallop, No JVD Gastrointestinal: Normal Bowel Sounds, Non Tender, Soft Back: Normal Inspection Extremity: Normal Capillary Refill Neurologic/Psychiatric: Alert, Oriented x3, No Motor/Sensory Deficits Skin: Normal Color, Warm/Dry Progress/Results/Core Measures Suspected Sepsis SIRS Temperature: Pulse: 77 Respiratory Rate: 16 Blood Pressure 111 /69 Mean: 83 Results/Orders Lab Results Laboratory Tests Test 01/21/22 16:53 Range/Units Influenza Type A (RT-PCR) Not Detected Not Detecte Influenza Type B (RT-PCR) Not Detected Not Detecte SARS-CoV-2 RNA (RT-PCR) Not Detected Not Detecte My Orders Orders - ARELY MARTELL APRN Covid 19 Inhouse Test (01/21/22 16:27) Influenza A And B By Pcr (01/21/22 16:27) Chest 1 View, Ap/Pa Only (01/21/22 16:27) Urine Bedside (01/21/22 16:27) Ibuprofen Tablet (Motrin Tablet) (01/21/22 18:15) Vital Signs/I&O 01/21/22 16:18 Temp 36.5 Pulse 77 Resp 16 B/P (MAP) 111/69 (83) Capillary Refill : Blood Pressure Mean: 83 Progress Note : Progress Note Patient is nontoxic and well hydrated on exam. No adventitious lung sounds or increased WOB noted. Vital signs are reassuring. No meningmus noted. Patient is ambulatory without issue. COVID and influenza negative. Chest xray acutely negative. No obvious nidus of bacterial infection noted on exam. Viral etiology of symptoms likely. Will d/c home with recs for supportive care and follow-up with PCP for persistent symptoms. Return precautions for urgent symptomology discussed. Patient verbalized understanding. Departure Impression Primary Impression: Acute viral syndrome Disposition: HOME, SELF-CARE Condition: Stable Departure-Patient Inst. Decision time for Depature: 18:10 Referrals: NO,LOCAL PHYSICIAN (PCP/Family) Primary Care Physician Patient Instructions: Viral Syndrome (DC) ARELY MARTELL APRN Jan 21, 2022 17:07
--- NOTE | 2022-01-21 18:07 | Diagnostic Imaging Report ---
EXAM: Chest 1 view, AP/PA only. INDICATION: Chest pain. COMPARISON: 04/13/2021. FINDINGS: Normal heart size and pulmonary vascularity. No dense consolidation, pleural effusion or pneumothorax. No acute osseous finding. No significant change. IMPRESSION: No acute cardiopulmonary finding. Dictated by: Dictated on workstation # [id number]
[2022-01-21] MEDS ORDERED: IBUPROFEN 600 MG (MOTRIN) TAB PO ONE (18:15)
[2022-01-21 18:21] VITALS: BP 114/67
== END 2022-01-21 18:23 | disposition home or self-care (01) ==
LOC: EDUNIT# 16:09 → ER 16:12
DX: B34.9 Viral infection, unspecified (principal); Z20.822 Contact with and (suspected) exposure to COVID-19; Z28.310 Unvaccinated for COVID-19
CPT/HCPCS: 71045; 84703; 87636

== ENCOUNTER 2022-03-05 18:35 | Emergency (ER) | payer OTHER, MEDICAID ==
[~2022-03-05] VITALS: Ht 162 cm; Wt 56.6 kg
--- NOTE | 2022-03-05 19:14 | ED Upper Extremity ---
General Chief Complaint: Upper Extremity Stated Complaint: R SHOULDER/ARM PAIN Nursing Triage Note: PT PRESENTS TO ED VIA POV FROM HOME WITH COMPLAINTS OF R SHOULDER PAIN THAT RADIATES DOWN R ARM SINCE SATURDAY. PT DENIES ANY KNOWN INJURY. Source: patient Exam Limitations: no limitations History of Present Illness Date Seen by Provider: Mar 05, 2022 Time Seen by Provider: 19:10 Initial Comments to ER with right shoulder pain for 3 days. No known injury. Pain with any range of motion or lifting. 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 Denies any repetitive motion of the arm. Notices some swelling to the arm. Onset: just prior to arrival Severity: moderate Pain/Injury Location: right shoulder Method of Injury: unknown Modifying Factors: Worse With Movement Allergies and Home Medications Allergies Coded Allergies: iodine (Verified Allergy, Intermediate, HIVES, 10/21/19) metoclopramide (Verified Allergy, Intermediate, 10/21/19) prochlorperazine (Verified Allergy, Intermediate, DYSTONIC, 10/21/19) promethazine (Verified Allergy, Intermediate, 10/21/19) povidone-iodine (Verified Allergy, Unknown, 03/05/22) Patient Home Medication List Home Medication List Reviewed: Yes Azithromycin (Azithromycin) 250 Mg Tablet, 250 MG PO UD Prescribed by: ANGELIKA CASTLE on 04/13/21 1143 Cyclobenzaprine HCl (Cyclobenzaprine HCl) 10 Mg Tablet, 10 MG PO Q8H PRN for SPASMS Prescribed by: MELINDA ISAAC on 10/21/198 Levofloxacin (Levofloxacin) 250 Mg Tablet, 250 MG PO DAILY Prescribed by: ARSLAN RAYMOND on 01/22/20 1001 Naproxen (Naproxen) 500 Mg Tablet.dr, 500 MG PO BID Prescribed by: MELINDA ISAAC on 10/21/19 2318 Ondansetron (Ondansetron Odt) 4 Mg Tab.rapdis, 4 MG PO Q8H Prescribed by: ARSLAN RAYMOND on 01/22/20 1001 Prednisone (Prednisone) 20 Mg Tab, 40 MG PO DAILY Prescribed by: ANGELIKA CASTLE on 04/13/21 1143 Review of Systems Constitutional: see HPI EENTM: see HPI Respiratory: no symptoms reported Cardiovascular: no symptoms reported Genitourinary: no symptoms reported Musculoskeletal: see HPI, joint pain Skin: no symptoms reported Psychiatric/Neurological: No Symptoms Reported Past Povaxsd-Iujotp-Vouoqn Hx Patient Social History Tobacco Use?: No Substance use?: No Alcohol Use?: Yes Alcohol Frequency: Once in a while Pt feels they are or have been: No Past Medical History Surgery/Hospitalization HX: MIGRAINES, ADHD, DEPRESSION, ANXIETY Surgeries: No Respiratory: No Cardiac: No Neurological: No Reproductive Disorders: No 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 oz. kg; 21.00 BMI Method: General Appearance: WD/WN, no apparent distress HEENT: PERRL/EOMI, normal ENT inspection Neck: non-tender, full range of motion Respiratory: no respiratory distress, no accessory muscle use Shoulder: swelling (There is some localized swelling without erythema or ecchymosis over the deltoid muscle. Minimal tenderness to palpation over the lateral pectoralis muscle. No apparent dislocation, full range of motion but she does have increased pain with this.) Elbow/Forearm: normal inspection, non-tender Wrist: Yes normal inspection, Yes non-tender Hand: normal inspection, non-tender, Right Neurologic/Tendon: normal sensation, normal motor functions Neurologic/Psychiatric: alert, normal mood/affect, oriented x 3 Skin: normal color, warm/dry Progress/Results/Core Measures Results/Orders My Orders Orders - ANGELIKA CASTLE APRN Shoulder, Right, 3 Views (03/05/22 19:09) Vital Signs/I&O 03/05/22 18:40 Temp 36.7 Pulse 74 Resp 16 B/P (MAP) 125/85 (98) Pulse Ox 100 Blood Pressure Mean: 98 Departure Impression Primary Impression: Internal derangement of right shoulder Disposition: 01 HOME, SELF-CARE Condition: Stable Departure-Patient Inst. Decision time for Depature: 19:12 Referrals: NO,LOCAL PHYSICIAN (PCP) Primary Care Physician SHAUN WEEKS MD, MICHAEL P MD Patient Instructions: Shoulder Pain ED Add. Discharge Instructions: 1. Call your insurance provider tomorrow to ask if they require prior authorization for MRI outpatient. If they do not then you can call the scheduling department to schedule the outpatient MRI of the right shoulder. If they do require prior authorization then you will need to establish a primary care provider to do this prior authorization. In the meantime use ibuprofen 600 mg (3 tabs) every 6 hours for pain in addition to Tylenol. I have also given you phone number to the local orthopedist. Call one of them for follow-up. All discharge instructions reviewed with patient and/or family. Voiced understanding. ANGELIKA CASTLE TEXTILE SCIENCE TECHNICIAN Mar 05, 2022 19:14
--- NOTE | 2022-03-05 19:26 | Diagnostic Imaging Report ---
INDICATION: Pain FINDINGS: Three views of the right shoulder with no fracture, dislocation or acute appearing articular irregularity. IMPRESSION: No acute appearing abnormality. Dictated by: Dictated on workstation # [id number]
[2022-03-05 20:05] VITALS: BP 125/85
== END 2022-03-05 20:09 | disposition home or self-care (01) ==
LOC: EDUNIT# 18:35 → ER 18:37
DX: M24.9 Joint derangement, unspecified (principal); Z28.310 Unvaccinated for COVID-19
CPT/HCPCS: 73030

== ENCOUNTER 2022-04-30 18:47 | Emergency (ER) | payer BC, MEDICAID ==
[~2022-04-30] VITALS: Ht 162.5 cm; Wt 60.0 kg
[2022-04-30] MEDS ORDERED: AMOX1TAB12 (19:15)
[2022-04-30] MEDS ORDERED: FLUC150T41 (19:15)
[2022-04-30] MEDS ORDERED: LISD30CA3 PO (19:15)
[2022-04-30] MEDS ORDERED: OXCA150T18 PO (19:15)
--- NOTE | 2022-04-30 19:19 | ED Cough/URI ---
General Chief Complaint: Cough/Cold/Flu Symptoms Stated Complaint: FEVER/FATIGUE/HEADACHE/CONGESTION/CHILLS Nursing Triage Note: Patient presents to ED per POV reporting last week 04/26 she had sore throat and congestion and seen at [facility], [place], operated by [facility] and was flu (-), strep (-), Pt is on Amoxicillin without improvement. In last 24-48 hrs, patient now has chills, fatigue, and headaache. Home COVID test (-). 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 She also has pressure in her sinuses bilaterally. Symptoms started on 04/25 and she was seen in the clinic in [place] on 04/26. Flu and strep testing were reportedly negative at that time. She was treated with Augmentin for possible sinus infection at that time. She states she is continued to have no improvement. 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 She took a home COVID test yesterday which was reportedly negative. She denies chance of . Allergies and Home Medications Allergies Coded Allergies: iodine (Verified Allergy, Intermediate, HIVES, 10/21/19) metoclopramide (Verified Allergy, Intermediate, 10/21/19) prochlorperazine (Verified Allergy, Intermediate, DYSTONIC, 10/21/19) promethazine (Verified Allergy, Intermediate, 10/21/19) povidone-iodine (Verified Allergy, Unknown, 03/05/22) Patient Home Medication List Home Medication List Reviewed: Yes Azithromycin (Azithromycin) 250 Mg Tablet, 250 MG PO UD Prescribed by: ANGELIKA CASTLE on 04/13/21 1143 Cyclobenzaprine HCl (Cyclobenzaprine HCl) 10 Mg Tablet, 10 MG PO Q8H PRN for SPASMS Prescribed by: MELINDA ISAAC on 10/21/19 2318 Levofloxacin (Levofloxacin) 250 Mg Tablet, 250 MG PO DAILY Prescribed by: ARSLAN RAYMOND on 01/22/20 1001 Naproxen (Naproxen) 500 Mg Tablet.dr, 500 MG PO BID Prescribed by: MELINDA ISAAC on 10/21/19 2318 Ondansetron (Ondansetron Odt) 4 Mg Tab.rapdis, 4 MG PO Q8H Prescribed by: ARSLAN RAYMOND on 01/22/20 1001 Prednisone (Prednisone) 20 Mg Tab, 40 MG PO DAILY Prescribed by: ANGELIKA CASTLE on 04/13/21 1143 Review of Systems Review of Systems Constitutional: chills, fever EENTM: nose congestion, throat pain Respiratory: cough Cardiovascular: no symptoms reported Gastrointestinal: no symptoms reported Genitourinary: no symptoms reported Musculoskeletal: other (Diffuse body aches) Skin: no symptoms reported Psychiatric/Neurological: No Symptoms Reported Hematologic/Lymphatic: No Symptoms Reported Immunological/Allergic: no symptoms reported Past Pfwzgje-Ybapkf-Yxyxgj Hx Patient Social History Tobacco Use?: No Substance use?: No Alcohol Use?: Yes Alcohol Frequency: Once in a while Pt feels they are or have been: No Immunizations Up To Date Influenza Vaccine Up-to-Date: No; Not Current First/Initial COVID19 Vaccinat: Unvaccinated Past Medical History Surgery/Hospitalization HX: MIGRAINES, ADHD, DEPRESSION, ANXIETY Surgeries: No Respiratory: No Cardiac: No Neurological: No Last Menstrual Period: Apr 30, 2022 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 oz. kg; 22.00 BMI Method: General Appearance: WD/WN, no apparent distress HEENT: PERRL/EOMI, normal ENT inspection, TMs normal, pharynx normal Neck: non-tender, supple, normal inspection Respiratory: chest non-tender, lungs clear, normal breath sounds, no respiratory distress, no accessory muscle use Cardiovascular: regular rate, rhythm, no edema, no gallop, no JVD, no murmur Gastrointestinal: normal bowel sounds, non tender, soft, no organomegaly Extremities: normal range of motion, non-tender, normal inspection, no pedal edema, no calf tenderness, normal capillary refill Neurologic/Psychiatric: alert, normal mood/affect, oriented x 3 Skin: normal color, warm/dry Lymphatic: no adenopathy Progress/Results/Core Measures Suspected Sepsis SIRS Temperature: Pulse: 90 Respiratory Rate: 16 Blood Pressure 110 /64 Mean: 79 Results/Orders Vital Signs/I&O 04/30/22 18:56 Temp 36.5 Pulse 90 Resp 16 B/P (MAP) 110/64 (79) Pulse Ox 99 O2 Delivery Room Air Capillary Refill : Less Than 3 Seconds Blood Pressure Mean: 79 Departure Communication (Admissions) Patient is hemodynamically stable. She has no evidence for focal bacterial infection with clear lung rios, normal vital signs. Her TMs are clear lizandro aterally. Given that she is already had a course of antibiotics and did improve I still think this likely viral syndrome. She tested less than 24 hours after onset of symptoms for the flu, I think this was likely false negative as she likely has influenza. She did take a home COVID test yesterday which was reportedly negative. She is tolerating p.o., no indication for IV antibiotics for overt dehydration that would require intervention. Given strict return precautions and discharged home in stable condition. Impression Primary Impression: Influenza-like symptoms Disposition: 01 HOME, SELF-CARE Condition: Stable Departure-Patient Inst. Referrals: NO,LOCAL PHYSICIAN (PCP/Family) Primary Care Physician Patient Instructions: Flu, Adult (DC) Add. Discharge Instructions: I believe you likely have influenza. Please increase your fluids and rest. Alternate Motrin and Tylenol as needed for body aches and fevers. Go ahead and continue your antibiotics to completion since you have already started them. Do not return to work until you are fever free for 24 hours. Return to the emergency department for any severe concerns. Follow-up with your primary doctor for any nonemergent needs. All discharge instructions reviewed with patient and/or family. Voiced understanding. Work/School Note: Work Release Form Date Seen in the Emergency Department: Apr 30, 2022 Return to Work: May 02, 2022 Restrictions: Return-No Fever (24hrs) MILIND ISSA DO Apr 30, 2022 19:19
[2022-04-30 19:21] VITALS: BP 110/64
== END 2022-04-30 19:21 | disposition home or self-care (01) ==
LOC: EDUNIT# 18:47 → ER FS 18:49
DX: J02.9 Acute pharyngitis, unspecified (principal); M79.10 Myalgia, unspecified site; Z28.310 Unvaccinated for COVID-19
CPT/HCPCS: 99282

== ENCOUNTER 2022-05-07 18:57 | Emergency (ER) | payer BC, MEDICAID ==
[~2022-05-07] VITALS: Ht 162.5 cm; Wt 59.1 kg
[~2022-05-07 18:57] MED LIST changes: +AMOX1TAB12; +FLUC150T41; +LISD30CA3 PO; +OXCA150T18 PO
[2022-05-07 19:01] VITALS: BP 133/98
[2022-05-07] MEDS ORDERED: RT-ALBUTEROL/IPRATROPIUM 3 ML (DUONEB) VIAL INH ONE (19:15)
--- NOTE | 2022-05-07 19:21 | Diagnostic Imaging Report ---
INDICATION: Cough and chest tightness. PA and lateral chest obtained at 7:19 p.m. and compared to 01/21/2022. FINDINGS: Heart and mediastinal silhouette are normal in appearance. The lungs are clear. There is no pneumothorax or pleural fluid. IMPRESSION: Negative chest. Dictated by: Dictated on workstation # [id number]
--- NOTE | 2022-05-07 19:36 | ED Cough/URI ---
General Chief Complaint: Cough/Cold/Flu Symptoms Stated Complaint: CHEST PAIN/HURTS TO BREATH/COUGH/FATIGUE/CONGESTIO Nursing Triage Note: Patient states she was seen approximately 1 week ago for the same symptoms. Patient states she was told she has the flu. Patient states that she isn't feeling any better. Patient has continued to cough and that has caused pain in her chest while coughing. Patient reports having a productive cough. History of Present Illness Date Seen by Provider: May 07, 2022 Time Seen by Provider: 19:05 Initial Comments 26-year-old female presents with cough, some chest tightness, pain from the cough, she reports a cough become productive. That she just has a lot of fatigue and congestion. She was seen here a week ago for the same symptoms and was told she had the flu. She reports that she had been seen a few days earlier at urgent care for similar symptoms. She reports her symptoms are now been going on for about 2 weeks and does not feel that they are getting better but may be little bit worse. Allergies and Home Medications Allergies Coded Allergies: iodine (Verified Allergy, Intermediate, HIVES, 10/21/19) metoclopramide (Verified Allergy, Intermediate, 10/21/19) prochlorperazine (Verified Allergy, Intermediate, DYSTONIC, 10/21/19) promethazine (Verified Allergy, Intermediate, 10/21/19) povidone-iodine (Verified Allergy, Unknown, 03/05/22) Patient Home Medication List Home Medication List Reviewed: Yes Amoxicillin/Potassium Clav (Amox Tr-K Clv 875-125 mg Tab) 875 Mg-125 Mg Tablet, (Reported) Entered as Reported by: EMMETT BIGGS on 04/30/221914 Azithromycin (Azithromycin) 250 Mg Tablet, 250 MG PO UD Prescribed by: ADILSON OWEN on 05/07/221936 Benzonatate (Tessalon Perles) 100 Mg Capsule, 100 MG PO TID PRN for COUGH Prescribed by: ADILSON OWEN on 05/07/221936 Fluconazole (Fluconazole) 150 Mg Tablet, (Reported) Entered as Reported by: EMMETT BIGGS on 04/30/221914 Lisdexamfetamine Dimesylate (Vyvanse) 30 Mg Capsule, 30 MG PO DAILY, (Reported) Entered as Reported by: EMMETT BIGGS on 04/30/221914 Oxcarbazepine (Oxcarbazepine) 150 Mg Tablet, 150 MG PO BID, (Reported) Entered as Reported by: EMMETT BIGGS on 04/30/221914 Discontinued Medications Azithromycin (Azithromycin) 250 Mg Tablet, 250 MG PO UD Discontinued Reason: Referral/FU Appt-Addtl Prescribed by: ANGELIKA CASTLE on 04/13/21 1143 Cyclobenzaprine HCl (Cyclobenzaprine HCl) 10 Mg Tablet, 10 MG PO Q8H PRN for SPASMS Discontinued Reason: Referral/FU Appt-Addtl Prescribed by: MELINDA ISAAC on 10/21/192317 Levofloxacin (Levofloxacin) 250 Mg Tablet, 250 MG PO DAILY Discontinued Reason: Referral/FU Appt-Addtl Prescribed by: ARSLAN RAYMOND on 01/22/20 100 Naproxen (Naproxen) 500 Mg Tablet.dr, 500 MG PO BID Discontinued Reason: Referral/FU Appt-Addtl Prescribed by: MELINDA ISAAC on 10/21/192317 Ondansetron (Ondansetron Odt) 4 Mg Tab.rapdis, 4 MG PO Q8H Discontinued Reason: Referral/FU Appt-Addtl Prescribed by: ARSLAN RAYMOND on 01/22/20 100 Prednisone (Prednisone) 20 Mg Tab, 40 MG PO DAILY Discontinued Reason: Referral/FU Appt-Addtl Prescribed by: ANGELIKA CASTLE on 04/13/21 1143 Review of Systems Review of Systems Constitutional: chills, malaise EENTM: see HPI Respiratory: cough; No short of breath Cardiovascular: No chest pain, No palpitations Gastrointestinal: No abdominal pain, No nausea, No vomiting Musculoskeletal: no symptoms reported Skin: no symptoms reported Psychiatric/Neurological: No Symptoms Reported Past Dzvvuan-Hfivgn-Qblehf Hx Patient Social History Tobacco Use?: No Substance use?: No Alcohol Use?: No Pt feels they are or have been: No Immunizations Up To Date First/Initial COVID19 Vaccinat: Unvaccinated Past Medical History Surgery/Hospitalization HX: MIGRAINES, ADHD, DEPRESSION, ANXIETY Surgeries: No Respiratory: No Cardiac: No Neurological: No 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 oz. kg; 22.00 BMI Method: General Appearance: WD/WN, no apparent distress HEENT: pharyngeal erythema Neck: full range of motion, supple, lymphadenopathy (R), lymphadenopathy (L) Respiratory: lungs clear, normal breath sounds, other (Frequent cough) Cardiovascular: normal peripheral pulses, regular rate, rhythm Gastrointestinal: non tender, soft Neurologic/Psychiatric: alert, normal mood/affect, oriented x 3 Skin: normal color, warm/dry Progress/Results/Core Measures Suspected Sepsis SIRS Temperature: Pulse: 92 Respiratory Rate: 16 Blood Pressure 133 /98 Mean: 110 Results/Orders My Orders Orders - ADILSON OWEN DO Chest Pa/Lat (2 View) (05/07/22 19:07) Albuterol/Ipra Inhalation Soln (Duoneb I (05/07/22 19:15) Svn Small Volume Nebulizer (05/07/22 19:07) Medications Given in ED Current Medications Medications Dose Ordered Sig/Anne-Marie Route Start Time Stop Time Status Last Admin Dose Admin Albuterol/ Ipratropium 3 ml ONCE ONCE INH 05/07/22 19:15 05/07/22 19:16 DC 05/07/22 19:16 3 ML Vital Signs/I&O 05/07/22 19:01 Temp 36.9 Pulse 92 Resp 16 B/P (MAP) 133/98 (110) Pulse Ox 97 O2 Delivery Room Air Capillary Refill : Less Than 3 Seconds Blood Pressure Mean: 110 Progress Note : Progress Note Patient has a negative chest x-ray. Due to her symptoms going on 2 weeks I will treat her with azithromycin for upper respiratory infection. I will also give her Tessalon Perles to help with her cough so she can get some rest. Patient stable and discharged home. Departure Impression Primary Impression: Bronchitis Disposition: HOME, SELF-CARE Condition: Stable Departure-Patient Inst. Referrals: NO,LOCAL PHYSICIAN (PCP/Family) Primary Care Physician Patient Instructions: Acute Bronchitis, Adult (DC) Add. Discharge Instructions: Please follow-up with your primary care provider in 1 week if symptoms or not improving or continue to worsen All discharge instructions reviewed with patient and/or family. Voiced understanding. Scripts Benzonatate (TESSALON PERLES) 100 Mg Capsule 100 MG PO TID PRN for COUGH, #10 CAP . Prov: ADILSON OWEN DO 05/07/22 Azithromycin (Azithromycin) 250 Mg Tablet 250 MG PO UD, #6 TAB TAKE 2 TABLETS ON DAY ONE THEN TAKE 1 TABLET DAILY FOR FOUR MORE DAYS. Prov: ADILSON OWEN DO 05/07/22 ADILSON OWEN DO May 07, 2022 19:36
[2022-05-07] MEDS ORDERED: BENZ100C18 PO ×2 (19:37→19:50)
[2022-05-07] MEDS ORDERED: AZIT250T12 PO ×2 (19:37→19:50)
== END 2022-05-07 19:46 | disposition home or self-care (01) ==
LOC: EDUNIT# 18:57 → ER FS 18:59
DX: J40 Bronchitis, not specified as acute or chronic (principal); J06.9 Acute upper respiratory infection, unspecified; Z28.310 Unvaccinated for COVID-19
CPT/HCPCS: 71046; 94640

== ENCOUNTER 2022-11-18 19:03 | Emergency (ER) | payer BC, MEDICAID ==
[~2022-11-18 19:03] MED LIST changes: +BENZ100C18 PO
[2022-11-18 19:09] VITALS: BP 114/70
[2022-11-18] MEDS ORDERED: NS IV 1000 ML 1,000 ML IV SCH (19:30)
--- NOTE | 2022-11-18 19:31 | ED Abdominal Pain ---
General Chief Complaint: OB < 20 WEEKS Stated Complaint: VOMITING/FATIGUE Nursing Triage Note: PT AMB TO ED BY POV WITH C/O FATIGUE, ABD CRAMPING. PT REPORTS SHE HAD N/V/D ON SATURDAY AND HAS SINCE HAD INCREASED FATIGUE. DENIES ANY VAGINAL BLEEDING OR N/V/D AT THIS TIME. LMP RAULITO 8. . Source of Information: Patient Exam Limitations: No Limitations (JESSICA GRANDE APRN) History of Present Illness Date Seen by Provider: Nov 18, 2022 Time Seen by Provider: 19:19 Initial Comments 27-year-old female presents to the ER with complaints of fatigue and abdominal cramping. She states that on , 11/15/2022, she had 24 hours of vomiting and diarrhea. She states that has ceased, but she has been fatigued since this occurred. She states she also feels like she is burning up, but has not had a fever. She is complaining of a headache, she does get daily migraines, states that it feels similar but it is more throbbing than normal. She is complaining of lower abdominal pain. Denies current nausea or vomiting, vaginal discharge or bleeding, dysuria. Last had a normal bowel movement yesterday. Last menstrual cycle was 09/27/2022. She has not had an ultrasound for this yet. She is scheduled to see Dr. Guillen on 12/03. (JESSICA GRANDE APRN) Allergies and Home Medications Allergies Coded Allergies: iodine (Verified Allergy, Intermediate, HIVES, 10/21/19) metoclopramide (Verified Allergy, Intermediate, 10/21/19) prochlorperazine (Verified Allergy, Intermediate, DYSTONIC, 10/21/19) promethazine (Verified Allergy, Intermediate, 10/21/19) povidone-iodine (Verified Allergy, Unknown, 03/05/22) Patient Home Medication List Home Medication List Reviewed: Yes (JESSICA GRANDE APRN) Amoxicillin/Potassium Clav (Amox Tr-K Clv 875-125 mg Tab) 875 Mg-125 Mg Tablet, (Reported) Entered as Reported by: EMMETT BIGGS on 04/30/221914 Azithromycin (Azithromycin) 250 Mg Tablet, 250 MG PO UD Prescribed by: ADILSON OWEN on 05/07/221949 Benzonatate (Tessalon Perles) 100 Mg Capsule, 100 MG PO TID PRN for COUGH Prescribed by: ADILSON OWEN on 05/07/221949 Fluconazole (Fluconazole) 150 Mg Tablet, (Reported) Entered as Reported by: EMMETT BIGGS on 04/30/221914 Lisdexamfetamine Dimesylate (Vyvanse) 30 Mg Capsule, 30 MG PO DAILY, (Reported) Entered as Reported by: EMMETT BIGGS on 04/30/221914 Oxcarbazepine (Oxcarbazepine) 150 Mg Tablet, 150 MG PO BID, (Reported) Entered as Reported by: EMMETT BIGGS on 04/30/221914 Review of Systems Review of Systems Constitutional: see HPI (JESSICA GRANDE APRN) Past Wvizilc-Gfknrg-Kthywv Hx Patient Social History Tobacco Use?: No Use of E-Cig and/or Vaping dev: No Substance use?: No Alcohol Use?: No Pt feels they are or have been: No (JESSICA GRANDE APRN) Immunizations Up To Date Influenza Vaccine Up-to-Date: Yes; Up-to-Date First/Initial COVID19 Vaccinat: Unvaccinated Second COVID19 Vaccination Leonard: Unvaccinated Third COVID19 Vaccination Date: Unvaccinated (JESSICA GRANDE APRN) Past Medical History Surgery/Hospitalization HX: MIGRAINES, ADHD, DEPRESSION, ANXIETY Surgeries: No Respiratory: No Cardiac: No Neurological: No Last Menstrual Period: Sep 27, 2022 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 oz. kg; BMI Method: General Appearance: WD/WN, no apparent distress Neck: supple, normal inspection Respiratory: lungs clear, normal breath sounds, no respiratory distress, no accessory muscle use Cardiovascular: regular rate, rhythm Gastrointestinal: normal bowel sounds, non tender, soft Extremities: normal range of motion, normal inspection Neurologic/Psychiatric: alert, normal mood/affect Skin: normal color, warm/dry (JESSICA GRANDE APRN) Progress/Results/Core Measures Results/Orders Lab Results Laboratory Tests Test 11/18/22 19:25 11/18/22 19:29 11/18/22 20:07 Range/Units Urine Color YELLOW Urine Clarity CLEAR Urine pH 6.0 5-9 Urine Specific [place] 1.025 H 1.016-1.022 Urine Protein NEGATIVE NEGATIVE Urine Glucose (UA) NEGATIVE NEGATIVE Urine Ketones NEGATIVE NEGATIVE Urine Nitrite NEGATIVE NEGATIVE Urine Bilirubin NEGATIVE NEGATIVE Urine Urobilinogen 0.2 < = 1.0 MG/DL Urine Leukocyte Esterase NEGATIVE NEGATIVE Urine RBC (Auto) NEGATIVE NEGATIVE Urine RBC NONE /HPF Urine WBC NONE /HPF Urine Squamous Epithelial Cells 2-5 /HPF Urine Crystals NONE /LPF Urine Bacteria TRACE /HPF Urine Casts NONE /LPF Urine Mucus SMALL H /LPF Urine Culture Indicated NO White Blood Count 7.8 4.3-11.0 10^3/uL Red Blood Count 4.65 3.80-5.11 10^6/uL Hemoglobin 14.2 11.5-16.0 g/dL Hematocrit 42 35-52 % Mean Corpuscular Volume 91 80-99 fL Mean Corpuscular Hemoglobin 31 25-34 pg Mean Corpuscular Hemoglobin Concent 34 32-36 g/dL Red Cell Distribution Width 12.0 10.0-14.5 % Platelet Count 199 130-400 10^3/uL Mean Platelet Volume 9.2 9.0-12.2 fL Immature Granulocyte % (Auto) 0 % Neutrophils (%) (Auto) 69 42-75 % Lymphocytes (%) (Auto) 21 12-44 % Monocytes (%) (Auto) 7 0-12 % Eosinophils (%) (Auto) 3 0-10 % Basophils (%) (Auto) 0 0-10 % Neutrophils # (Auto) 5.4 1.8-7.8 10^3/uL Lymphocytes # (Auto) 1.6 1.0-4.0 10^3/uL Monocytes # (Auto) 0.5 0.0-1.0 10^3/uL Eosinophils # (Auto) 0.2 0.0-0.3 10^3/uL Basophils # (Auto) 0.0 0.0-0.1 10^3/uL Immature Granulocyte # (Auto) 0.0 0.0-0.1 10^3/uL Sodium Level 140 135-145 MMOL/L Potassium Level 3.7 3.6-5.0 MMOL/L Chloride Level 108 H 98-107 MMOL/L Carbon Dioxide Level 24 21-32 MMOL/L Anion Gap 8 5-14 MMOL/L Blood Urea Nitrogen 10 7-18 MG/DL Creatinine 0.66 0.60-1.30 MG/DL Estimat Glomerular Filtration Rate 125 BUN/Creatinine Ratio 15 Glucose Level 82 70-105 MG/DL Calcium Level 8.8 8.5-10.1 MG/DL Corrected Calcium 8.6 8.5-10.1 MG/DL Total Bilirubin 1.0 0.1-1.0 MG/DL Aspartate Amino Transf (AST/SGOT) 22 5-34 U/L Alanine Aminotransferase (ALT/SGPT) 19 0-55 U/L Alkaline Phosphatase 64 40-136 U/L Total Protein 6.8 6.4-8.2 GM/DL Albumin 4.2 3.2-4.5 GM/DL Human Chorionic Gonadotropin, Quant 59233 H <5 MIU/ML SARS-CoV-2 RNA (RT-PCR) Not Detected Not Detecte (OWENADILSON L DO) Medications Given in ED Current Medications Medications Dose Ordered Sig/Anne-Marie Route Start Time Stop Time Status Last Admin Dose Admin Acetaminophen 1,000 mg ONCE ONCE PO 11/18/22 20:45 11/18/22 20:46 DC 11/18/22 21:41 1,000 MG (OWEN,ADILSON L DO) Vital Signs/I&O 11/18/22 19:09 Temp 37.1 Pulse 82 Resp 16 B/P (MAP) 114/70 (85) Pulse Ox 100 O2 Delivery Room Air (OWEN,ADILSON L DO) Blood Pressure Mean: 85 Progress Progress Note : Progress Note Patient seen and evaluated, resting comfortably in bed, no acute distress, has washcloth on her forehead. Based on exam and symptoms, work-up initiated including CBC, CMP, hCG, UA, urine , COVID swab. IV fluids ordered. 2035 Labs reviewed. CBC grossly normal. CMP grossly normal, chloride slightly elevated 10. hCG 20,029. Urinalysis negative for infection. COVID-negative. Ultrasound ordered to rule out ectopic . (JESSICA GRANDE APRN) Progress Note : Progress Note Patient's care was assumed at with ultrasound pending. Ultrasound was obtained and reviewed that shows single intrauterine , subchorionic hemorrhage. heart tones were not definitively obtained however it is early in her . Discussed findings with patient. 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 Patient is stable upon discharge. Is likely has a viral gastroenteritis in addition to her with any concerns. (ADILSON OWEN DO) Departure Impression Primary Impression: Intrauterine Additional Impressions: Subchorionic hemorrhage in first trimester Qualified Codes: O41.8X10 - Other specified disorders of amniotic fluid and membranes, first trimester, not applicable or unspecified; O46.8X1 - Other antepartum hemorrhage, first trimester Gastroenteritis Disposition: HOME, SELF-CARE Condition: Stable Departure-Patient Inst. Referrals: NO,LOCAL PHYSICIAN (PCP/Family) Primary Care Physician Patient Instructions: Bleeding In Early , Diarrhea, Adult ED, - The Third Month, Taking in Enough Fluids While You Are Add. Discharge Instructions: Follow-up with your airborne mission systems superintendent/primary care provider next week for recheck of your symptoms and further outpatient management as needed. You to drink plenty of fluids and take vitamins All discharge instructions reviewed with patient and/or family. Voiced understanding. JESSICA GRANDE APRN Nov 18, 2022 19:30 ADILSON OWEN DO Nov 18, 2022 23:26
[2022-11-18 19:33] LABS: BILIRUBIN,URINE NEGATIVE (NEGATIVE); CLARITY,URINE CLEAR; COLOR,URINE YELLOW; GLUCOSE, URINE (UA) NEGATIVE (NEGATIVE); KETONES,URINE NEGATIVE (NEGATIVE); LEUKOCYTE ESTERASE ,URINE NEGATIVE (NEGATIVE); NITRITE,URINE NEGATIVE (NEGATIVE); PROTEIN,URINE NEGATIVE (NEGATIVE)
[2022-11-18 19:36] LABS: BASOPHILS % (AUTO) 0 % (0-10); EOSINOPHILS # (AUTO) 0.2 10^3/uL (0.0-0.3); EOSINOPHILS % (AUTO) 3 % (0-10); HEMATOCRIT 42 % (35-52); HEMOGLOBIN 14.2 g/dL (11.5-16.0); LYMPHOCYTES # (AUTO) 1.6 10^3/uL (1.0-4.0); LYMPHOCYTES % (AUTO) 21 % (12-44); MEAN CORPUSCULAR HEMOGLOBIN 31 pg (25-34); MEAN CORPUSCULAR HGB CONC 34 g/dL (32-36); MEAN CORPUSCULAR VOLUME 91 fL (80-99); MEAN PLATELET VOLUME 9.2 fL (9.0-12.2); MONOCYTES # (AUTO) 0.5 10^3/uL (0.0-1.0); MONOCYTES % (AUTO) 7 % (0-12); NEUTROPHILS # (AUTO) 5.4 10^3/uL (1.8-7.8); NEUTROPHILS % (AUTO) 69 % (42-75); PLATELET COUNT 199 10^3/uL (130-400); WHITE BLOOD COUNT 7.8 10^3/uL (4.3-11.0)
[2022-11-18 19:42] LABS: BACTERIA,URINE TRACE /HPF
[2022-11-18 19:47] LABS: ALBUMIN 4.2 GM/DL (3.2-4.5); POTASSIUM 3.7 MMOL/L (3.6-5.0)
[2022-11-18 19:48] LABS: CALCIUM 8.8 MG/DL (8.5-10.1)
[2022-11-18 19:49] LABS: TOTAL PROTEIN 6.8 GM/DL (6.4-8.2)
[2022-11-18 19:53] LABS: CREATININE SERUM 0.66 MG/DL (0.60-1.30)
[2022-11-18] MEDS ORDERED: ACETAMINOPHEN 500 MG TABLET PO ONE (20:45)
--- NOTE | 2022-11-19 04:25 | Diagnostic Imaging Report ---
INDICATION: Vomiting and fatigue during . Transvaginal ultrasonography of the was performed. There is a helm intrauterine gestational sac with mean diameter indicating gestational age of 7 weeks and 2 days. pole is present with crown-rump length indicating gestational age of 6 weeks and 2 days. cardiac activity cannot be identified. There is adjacent heterogeneous 1.4 x 1.3 x 2.6 cm hematoma. Note is made of 1.2 cm cyst in the left maternal ovary. Right maternal ovary was not visualized. There is no evidence of pelvic free fluid. IMPRESSION: Intrauterine gestation with approximate gestational age of 7 weeks and absent cardiac activity. With associated subchorionic hematoma, this likely represents failed gestation. Correlation with beta hCG measurements and possible follow-up ultrasound would be useful. Dictated by: Dictated on workstation # [id number]
== END 2022-11-18 23:46 | disposition home or self-care (01) ==
LOC: EDUNIT# 19:03 → ER 19:06
DX: O46.8X1 Other antepartum hemorrhage, first trimester (principal); O99.611 Diseases of the digestive system complicating pregnancy, first trimester; K52.9 Noninfective gastroenteritis and colitis, unspecified; Z3A.01 Less than 8 weeks gestation of pregnancy; Z86.69 Personal history of other diseases of the nervous system and sense organs; Z28.310 Unvaccinated for COVID-19; Z20.822 Contact with and (suspected) exposure to COVID-19
CPT/HCPCS: 36415; 76801; 76817; 80053; 81000; 84702; 84703; 85025; 87636

== ENCOUNTER 2022-12-10 05:30 | Outpatient (CLI) | payer BC, MEDICAID ==
[~2022-12-10] VITALS: Ht 162.6 cm; Wt 66.8 kg
[2022-12-10] MEDS ORDERED: ACET-168 PO (08:53)
[2022-12-11] MEDS ORDERED: ACHD5005 PO (07:23)
[2022-12-11] MEDS ORDERED: IBUP-1773 PO (07:23)
== END 2022-12-10 09:15 | disposition home or self-care (01) ==
LOC: PREOP 05:30
PROVIDERS: ATTEND Obstetrics & Gynecology
DX: Z01.818 Encounter for other preprocedural examination (principal)

== ENCOUNTER 2022-12-11 06:04 | Day surgery (SDC) | payer BC, MEDICAID ==
[2022-12-11] VITALS (10 sets, daily range): BP systolic 99–108; BP diastolic 43–70
[~2022-12-11] VITALS: Ht 162 cm; Wt 66.8 kg
[~2022-12-11 06:04] MED LIST changes: +ACET-168 PO
[2022-12-11 06:41] LABS: BASOPHILS % (AUTO) 1 % (0-10); EOSINOPHILS # (AUTO) 0.3 10^3/uL (0.0-0.3); EOSINOPHILS % (AUTO) 5 % (0-10); HEMATOCRIT 39 % (35-52); HEMOGLOBIN 13.3 g/dL (11.5-16.0); LYMPHOCYTES # (AUTO) 1.6 10^3/uL (1.0-4.0); LYMPHOCYTES % (AUTO) 28 % (12-44); MEAN CORPUSCULAR HEMOGLOBIN 31 pg (25-34); MEAN CORPUSCULAR HGB CONC 35 g/dL (32-36); MEAN CORPUSCULAR VOLUME 90 fL (80-99); MEAN PLATELET VOLUME 9.7 fL (9.0-12.2); MONOCYTES # (AUTO) 0.4 10^3/uL (0.0-1.0); MONOCYTES % (AUTO) 7 % (0-12); NEUTROPHILS # (AUTO) 3.4 10^3/uL (1.8-7.8); NEUTROPHILS % (AUTO) 59 % (42-75); PLATELET COUNT 192 10^3/uL (130-400); WHITE BLOOD COUNT 5.8 10^3/uL (4.3-11.0)
[2022-12-11] MEDS: LACTATED RINGERS 1,000 ML 1,000 ML IV PRN ×2 (06:47→07:40)
[2022-12-11] MEDS ORDERED: dexAMETHasone INJ 10 MG/ML 1 ML VIAL ONE (07:06)
[2022-12-11] MEDS ORDERED: MIDAZOLAM INJ 2 MG/2 ML VIAL ONE (07:06)
[2022-12-11] MEDS ORDERED: fentaNYL INJECTION 100 MCG/2 ML VIAL ONE (07:06)
[2022-12-11] MEDS ORDERED: LIDOCAINE PF 2% 5 ML VIAL ONE (07:06)
[2022-12-11] MEDS ORDERED: ONDANSETRON INJECTION 4 MG/2 ML (SDV) ONE (07:06)
[2022-12-11] MEDS ORDERED: proPOfol INJECTION 200 MG/20 ML VIAL IV ONE (07:06)
--- NOTE | 2022-12-11 07:20 | Progress Note-Pre Operative ---
Pre-Operative Progress Note Date of Available H&P: Dec 11, 2022 Date H&P Reviewed: Dec 11, 2022 Time H&P Reviewed: 07:15 History & Physical: H&P Reviewed, Patient Examed, No changes noted Pre-Operative Diagnosis: Missed ROBIN Meyer DO Dec 11, 2022 07:20
--- NOTE | 2022-12-11 07:22 | Discharge Inst-Women's Service ---
Discharge Inst-Women's Serv Depart Medication/Instructions New, Converted or Re-Newed RX: Transmitted to Pharmacy Problems Reviewed?: Yes Consults/Follow Up Additional Follow Up: Yes Orders/Referrals Dr. Cotter in 7-10 days Activity Activity: Activity as Tolerated Driving Instructions: No Driving for 1 Week NO SMOKING: NO SMOKING Nothing Inside Vagina: No Douching, No [place], No Tampons Diet Discharge Diet: No Restrictions Symptoms to Report to : Bleeding Excessive, Pain Increased, Fever Over 101 Degrees F, Vaginal Bleeding Increase, Questions/Concerns For Any Problems or Questions: Contact Your Physician ROBIN COTTER DO Dec 11, 2022 07:22
[2022-12-11] MEDS ORDERED: ACHD5005 PO (07:23)
[2022-12-11] MEDS ORDERED: IBUP-1773 PO (07:23)
[2022-12-11] MEDS ORDERED: ONDANSETRON INJECTION 4 MG/2 ML (SDV) IVP PRN ×2 (07:30→08:15)
[2022-12-11] MEDS ORDERED: KETOROLAC INJ 30 MG/ML VIAL IVP ONE (07:30)
[2022-12-11] MEDS ORDERED: HYDROcodone/ACETAMINOPHEN 5 MG/325 MG TABLET PO PRN (07:30)
[2022-12-11] MEDS ORDERED: D5 LR 1,000 ML IV SOLN 1,000 ML IV SCH (07:30)
[2022-12-11] MEDS ORDERED: SEVOFLURANE (ULTANE) 15 ML INHAL SOLN ONE (07:46)
[2022-12-11] MEDS ORDERED: morphine INJ 10 MG/ML 1ML (SYR OR VIAL) IVP ONE (08:15)
--- NOTE | 2022-12-11 09:58 | OPERATIVE REPORT ---
DATE OF SERVICE: 12/11/2022 PREOPERATIVE DIAGNOSES: 1. A 27-year-old at approximately 10 weeks' gestation. 2. Missed . POSTOPERATIVE DIAGNOSES: 1. A 27-year-old at approximately 10 weeks' gestation. 2. Missed . PROCEDURE: Suction D and C. SURGEON: Robin Cotter DO ANESTHESIA: LMA general. ESTIMATED BLOOD LOSS: 250 mL. URINE OUTPUT: 400 mL clear at the end of the procedure. FLUIDS: 1400 mL of lactated Ringer's solution. FINDINGS: Grossly normal-appearing external female genitalia. Moderate amount of products of conception. SPECIMEN SENT: Products of conception. INDICATIONS FOR PROCEDURE: This 27-year-old female was a patient who had sought care in my office for care. She had had 3 prior pregnancies without complication carrying them to full term and delivering vaginally. Upon evaluation of this , there was found from any of activity and a falling hCG level, diagnosed with a missed AB. I discussed with the patient, allowing for spontaneous miscarriage versus proceeding with suction D and C. After risks and benefits, alternatives of both were discussed, she agreed to proceed with suction D and C. After everything was discussed with the patient in detail including recovery timeframe, risk from anesthesia and even , consent was obtained. The patient was taken to the operating room. OPERATIVE DESCRIPTION IN DETAIL: Once in the operating room, anesthesia was found to be adequate, was placed in dorsal lithotomy position, prepped and draped in normal sterile fashion. A timeout was performed. A weighted speculum inserted to the patient's vagina. Right angle retractor was utilized. Cervix was grasped at 12 o'clock position using a long Allis clamp. I then gently sound uterine cavity, depth was found to be 8 cm. I then gently dilated cervix using Hanks dilators to maximum dilatation of 1 cm, at which point I advanced an #8 Pelham suction curette into the uterus where I attached Pelham suction to a maximum suction pressure of 70 mmHg, at which point I performed methodical rotation of the Pelham suction curette clearing the endometrial cavity of all endometrial products of conception. This was done on several different passes. A gentle sharp curettage was then performed with a medium size endometrial curette at and then one final pass with the Dereck suction curette. After this, the bleeding was noted too significantly slowed down to a very slow drip. At which point, I removed all the instruments from the patient's vagina. The patient tolerated the procedure well and was taken to recovery in stable condition. Lap and sponge counts were correct at the end of the procedure. Instrument counts correct as well. Job ID: [id number] DocumentID: [id number] Dictated Date: 12/11/2022 08:32:43 Guide Date: 12/11/2022 09:56:00 Dictated By: ROBIN COTTER DO
--- NOTE | 2022-12-11 13:19 | Anesthesia-General Post-Op ---
General Patient Condition Mental Status/LOC: Same as Preop Cardiovascular: Satisfactory Nausea/Vomiting: Absent Respiratory: Satisfactory Pain: Controlled Complications: Absent Post Op Complications Complications None Follow Up Care/Instructions Patient Instructions None needed. Anesthesia/Patient Condition Patient Condition Patient is already discharged to home. She was doing well, no complaints, stable vital signs, no apparent adverse anesthesia problems. No complications reported per nursing. LUISA GALAVIZ DO Dec 11, 2022 13:19
== END 2022-12-11 10:00 | disposition home or self-care (01) ==
LOC: SDC 06:04
PROVIDERS: ATTEND Obstetrics & Gynecology
DX: O02.1 Missed abortion (principal)
CPT/HCPCS: 36415; 85025; 86850; 86900; 86901; 87081

== ENCOUNTER 2023-02-23 11:07 | Emergency (ER) | payer BC, MEDICAID ==
[~2023-02-23] VITALS: Ht 162.5 cm; Wt 68.4 kg
[~2023-02-23 11:07] MED LIST changes: +ACHD5005 PO; +IBUP-1773 PO
[2023-02-23 11:42] LABS: CLARITY,URINE CLEAR; COLOR,URINE YELLOW
[2023-02-23 11:43] LABS: BILIRUBIN,URINE NEGATIVE (NEGATIVE); GLUCOSE, URINE (UA) NEGATIVE (NEGATIVE); KETONES,URINE NEGATIVE (NEGATIVE); LEUKOCYTE ESTERASE ,URINE NEGATIVE (NEGATIVE); NITRITE,URINE NEGATIVE (NEGATIVE); PROTEIN,URINE NEGATIVE (NEGATIVE)
--- NOTE | 2023-02-23 11:44 | ED Cough/URI ---
General Chief Complaint: Cough/Cold/Flu Symptoms Stated Complaint: CHILLS/CONGESTION/COUGH/6 WEEKS /CRAMPING Nursing Triage Note: PT AMB TO [facility] WITH CC OF COUGH, CHILLS, DELGADO, RUNNY NOSE, AND BURNING LUNGS SINCE SATURDAY. PT STATES THAT SHE IS 7 WKS AND DEVELOPED CRAMP AND RIGHT SIDED PAIN YESTERDAY. Source: patient Exam Limitations: no limitations History of Present Illness Date Seen by Provider: Feb 23, 2023 Time Seen by Provider: 11:31 Initial Comments 27-year-old G5, P3 female approximately 7 weeks gestation presents to the ER with complaint of head congestion starting Saturday. She states that now she has had burning pain in her lungs, cough with green mucus, headache. She reports 1 episode of vomiting yesterday and nausea currently, states she is uncertain if this is related to her . She reports sore throat but only in the morning. She denies fevers, shortness of air, diarrhea, vaginal bleeding and discharge, dysuria. She is also complaining of shooting bilateral lower abdominal pain and right flank pain. She had a miscarriage in November and had to have a D&C. Allergies and Home Medications Allergies Coded Allergies: iodine (Verified Allergy, Intermediate, HIVES, 12/10/22) metoclopramide (Verified Allergy, Intermediate, 12/10/22) prochlorperazine (Verified Allergy, Intermediate, DYSTONIC, 12/10/22) promethazine (Verified Allergy, Intermediate, 12/10/22) povidone-iodine (Verified Allergy, Unknown, 12/10/22) Patient Home Medication List Home Medication List Reviewed: Yes Hydrocodone/Acetaminophen (Hydrocodone-Acetamin 5-325 mg) 5 Mg-325 Mg Tablet, 1 EA PO Q4H PRN for PAIN-MODERATE (5-7) Prescribed by: ROBIN GUILLEN on 12/11/22722 Ibuprofen (Ibuprofen) 600 Mg Tablet, 600 MG PO Q6H Prescribed by: ROBIN GUILLEN on 12/11/22722 Review of Systems Review of Systems Constitutional: see HPI Past [id number] Hx Patient Social History Tobacco Use?: No Substance use?: No Alcohol Use?: No Immunizations Up To Date Tetanus Booster (TDap): Unknown First/Initial COVID19 Vaccinat: Unvaccinated Second COVID19 Vaccination Leonard: Unvaccinated Third COVID19 Vaccination Date: Unvaccinated Seasonal Allergies Seasonal Allergies: Yes Past Medical History Surgery/Hospitalization HX: MIGRAINES, ADHD, DEPRESSION, ANXIETY Surgeries: No Respiratory: Yes (COVID) Pneumonia Cardiac: No Neurological: No Reproductive Disorders: No [employer]AFF [employer]IC[employer] TECH[employer]IST History: IUD Sexually Transmitted Disease: Yes (HPV, ORAL COLD SORES) Genitourinary: Yes UTI-Chronic Gastrointestinal: Yes Irritable Bowel Musculoskeletal: No Endocrine: Yes Hypothyroidsim HEENT: Yes (LEGALLY BLIND IN LEFT EYE) Loss of Vision: Left Cancer: No Psychosocial: Yes ADD/ADHD, Anxiety, PTSD, Depression Integumentary: Yes Eczema Blood Disorders: No Adverse Reaction/Blood Tranf: No Family Medical History No Pertinent Family Hx Physical Exam Vital Signs - First Documented 02/23/23 11:17 Temp 36.4 Pulse 97 B/P (MAP) 120/66 (84) Pulse Ox 98 O2 Delivery Room Air Capillary Refill : Height: '" Weight: lbs. oz. kg; 25.00 BMI Method: General Appearance: WD/WN, no apparent distress HEENT: pharyngeal erythema (Mild erythema), other (Enlarged tonsils) Respiratory: lungs clear, normal breath sounds, no respiratory distress, no accessory muscle use Cardiovascular: regular rate, rhythm Gastrointestinal: normal bowel sounds, non tender, soft Extremities: normal range of motion, normal inspection Neurologic/Psychiatric: alert, normal mood/affect Skin: normal color, warm/dry Progress/Results/Core Measures Suspected Sepsis SIRS Temperature: Pulse: 97 Respiratory Rate: Blood Pressure 120 /66 Mean: 84 Results/Orders Lab Results Laboratory Tests Test 02/23/23 11:23 Range/Units Urine Color YELLOW Urine Clarity CLEAR Urine pH 6.0 5-9 Urine Specific [place] <=1.005 1.016-1.022 Urine Protein NEGATIVE NEGATIVE Urine Glucose (UA) NEGATIVE NEGATIVE Urine Ketones NEGATIVE NEGATIVE Urine Nitrite NEGATIVE NEGATIVE Urine Bilirubin NEGATIVE NEGATIVE Urine Urobilinogen 0.2 < = 1.0 MG/DL Urine Leukocyte Esterase NEGATIVE NEGATIVE Urine RBC (Auto) TRACE H NEGATIVE Urine RBC 0-2 /HPF Urine WBC NONE /HPF Urine Squamous Epithelial Cells 2-5 /HPF Urine Crystals NONE /LPF Urine Bacteria TRACE /HPF Urine Casts NONE /LPF Urine Mucus NEGATIVE /LPF Urine Culture Indicated NO Urine Test POSITIVE NEGATIVE Influenza Type A (RT-PCR) Not Detected Not Detecte Influenza Type B (RT-PCR) Not Detected Not Detecte SARS-CoV-2 RNA (RT-PCR) Not Detected Not Detecte Group A Streptococcus Screen Not Detected NotDetected My Orders Orders - JESSICA GRANDE APRN Covid 19 Inhouse Test (02/23/23 11:31) Influenza A And B By Pcr (02/23/23 11:31) Rapid Strep A Screen (02/23/23 11:31) Ua Culture If Indicated (02/23/23 11:31) Hcg,Qualitative Urine (02/23/23 11:31) Vital Signs/I&O 02/23/23 02/23/23 11:17 12:36 Temp 36.4 Pulse 97 89 B/P (MAP) 120/66 (84) 125/82 Pulse Ox 98 97 O2 Delivery Room Air Room Air Capillary Refill : Blood Pressure Mean: 84 Progress Note : Progress Note Patient seen and evaluated, resting comfortably in bed, no acute distress. Based on exam and symptoms, COVID, flu, strep swab ordered. Urinalysis and urine ordered. 1235 COVID, flu, strep negative. Urine positive. Urinalysis shows trace RBCs, negative for infection. Bedside ultrasound performed by Dr. Gimenez, ER physician. He identified a structure within the uterus, was unable to determine the gestational age due to location against the uterine wall, but d id identify a heartbeat at approximately 135 bpm. Gestational age likely at least 5 to 6 weeks due to identified heart beat. Results discussed with patient. Patient instructed that this is likely a viral URI she does not need an antibiotic this time. Patient instructed to take Tylenol, Benadryl, Claritin as needed for symptoms and to use her albuterol inhaler as needed. Patient is stable for discharge. Discharge instructions and return precautions provided. Departure Impression Primary Impression: Upper respiratory infection Disposition: 01 HOME, SELF-CARE Condition: Stable Departure-Patient Inst. Decision time for Depature: 12:35 Referrals: [facility] (PCP/Family) Primary Care Physician Patient Instructions: Viral Upper Respiratory Infection, Adult (DC) Add. Discharge Instructions: You may take Tylenol as needed for pain and fever. You may take Claritin during the day to help with nasal congestion. You may take Benadryl at night to help with nasal congestion. You may use your albuterol inhaler as needed for cough. Follow-up with Dr. Guillen. Return if you are getting worse not better, or any other new, concerning, or worsening symptoms All discharge instructions reviewed with patient and/or family. Voiced understanding. JESSICA GRANDE APRN Feb 23, 2023 11:44
[2023-02-23 11:45] LABS: BACTERIA,URINE TRACE /HPF; RBC,URINE 0-2 /HPF
[2023-02-23 12:36] VITALS: BP 125/82
== END 2023-02-23 12:39 | disposition home or self-care (01) ==
LOC: EDUNIT# 11:07 → ER 11:10
DX: O99.511 Diseases of the respiratory system complicating pregnancy, first trimester (principal); J06.9 Acute upper respiratory infection, unspecified; Z3A.01 Less than 8 weeks gestation of pregnancy
CPT/HCPCS: 81000; 84703; 87430; 87636; 99283